=== PATIENT | female | born 1945 | race American Indian/Alaskan Native ===

== ENCOUNTER 2016-08-29 12:17 | Emergency (ER) | payer MEDICARE ==
[2016-08-29 12:54] VITALS: BP 110/60
--- NOTE | 2016-08-29 15:19 | Emergency Department Report ---
ED General Adult HPI - General Chief complaint: Urogenital-Female Stated complaint: INFECTION ON LEFT BREAST Time Seen by Provider: 08/29/16 13:33 Source: patient Mode of arrival: Ambulatory Limitations: No Limitations - History of Present Illness Initial comments: 70-year-old female comes in for concern of left breast bloody discharge. Patient reports that she's been dealing with this since 2013 she believes she had her last mammogram last year which was within normal limits. Patient reports that on her left nipple area it was a little bit of a scab she went to wash it and the scab came off and now she has an open area on her left nipple. Patient reports that she tried cleaning it off with peroxide. She is even tried some Neosporin on it. In the past that has helped but this time is not. Patient denies any purulent discharge no fever no chills. - Related Data Home Medications Medication Instructions Recorded Confirmed Last Taken Carvedilol [Carvedilol] 6.25 PO BID 03/31/14 03/31/14 03/31/14 6.25MG Previous Rx's Medication Instructions Recorded Last Taken Type Acetaminophen/Codeine [Tylenol #3] 1 tab PO Q6H PRN #15 tab 12/28/15 Unknown Rx Ibuprofen [Motrin 800 MG tab] 800 mg PO Q8HR PRN #21 tablet 12/28/15 Unknown Rx Allergies Allergy/AdvReac Type Severity Reaction Status Date / Time No Known Allergies Allergy Verified 12/28/15 02:19 ED Review of Systems ROS: Stated complaint: INFECTION ON LEFT BREAST Other details as noted in HPI Constitutional: no symptoms reported Genitourinary: other (left nipple irritation) ED Past Medical Hx - Past Medical History Hx Hypertension: Yes Hx Heart Attack/AMI: No Hx Congestive Heart Failure: No Hx Diabetes: Yes Hx Deep Vein Thrombosis: No Hx Pulmonary Embolism: No Hx Renal Disease: No Hx Arthritis: No Hx Seizures: No Hx Asthma: No Hx COPD: No - Surgical History Hx Pacemaker: No Hx Cholecystectomy: No Hx Appendectomy: No Additional Surgical History: 3 bypass and valve replacement. - Social History Smoking Status: Never Smoker Substance Use Type: None - Medications Home Medications: Home Medications Medication Instructions Recorded Confirmed Last Taken Type Carvedilol [Carvedilol] 6.25 PO BID 03/31/14 03/31/14 03/31/14 History 6.25MG Acetaminophen/Codeine [Tylenol #3] 1 tab PO Q6H PRN #15 tab 12/28/15 Unknown Rx Ibuprofen [Motrin 800 MG tab] 800 mg PO Q8HR PRN #21 tablet 12/28/15 Unknown Rx ED Physical Exam - General Limitations: No Limitations General appearance: alert, in no apparent distress - Skin Skin exam: Present: warm, dry, other (left nipple appears that the skin has come off. There is no discharge appreciated. No tenderness appreciated) ED Course Vital Signs 08/29/16 12:45 Temperature 97.8 F Pulse Rate 89 Respiratory 18 Rate Blood Pressure 110/60 O2 Sat by Pulse 100 Oximetry ED Medical Decision Making - Medical Decision Making Patient's been evaluated by this provider. Discussed with patient that there does not appear to be any infection of her left breast. The nipple is just has the skin off. Advised patient to use A&D ointment. Advised her to gently wash the breasts pat dry the nipples and then apply a and D ointment at least twice a day. Is important that she follows up with her primary care doctor within a week. For further evaluation. Patient verbalized understanding. Do not see the necessity of placing patient on antibiotic at this time. There is no erythematous is nonerythematous and is non-tender. Critical care attestation.: If time is entered above; I have spent that time in minutes in the direct care of this critically ill patient, excluding procedure time. ED Disposition Clinical Impression: Nipple dermatitis Disposition: DISCHARGED TO HOME OR SELFCARE Is pt being admited?: No Does the pt Need Aspirin: No Condition: Stable Instructions: and Nipple Soreness (ED) Additional Instructions: Please apply A+D Ointment to the nipples twice a day follow-up with her primary care doctor within 5 days. Return if he had any bloody discharge pain in the breast swelling in the breasts.
== END 2016-08-29 15:46 | disposition home or self-care (01) ==
LOC: ED 12:17
DX: L30.8 Other specified dermatitis (principal); I10 Essential (primary) hypertension; E11.9 Type 2 diabetes mellitus without complications
CPT/HCPCS: 82962; 99282

== ENCOUNTER 2018-12-22 17:25 | Inpatient (IN) | payer MEDICARE ==
--- NOTE | 2018-12-22 18:00 | Emergency Department Report ---
Blank Doc - Documentation Documentation: 73 y/o female for sluggish, weakness unsteady gait per patient. Hx/o DM, HTN,
[2018-12-22 18:28] LABS: Basophils # (Auto) 0.1 K/mm3 (0.0-0.1); Basophils % (Auto) 0.7 % (0.0-1.8); Eosinophils # (Auto) 0.2 K/mm3 (0.0-0.4); Eosinophils % (Auto) 1.9 % (0.0-4.3); Hematocrit 41.3 % (30.3-42.9); Hemoglobin 14.3 gm/dl (10.1-14.3); Lymphocytes # (Auto) 2.1 K/mm3 (1.2-5.4); Lymphocytes % (Auto) 21.2 % (13.4-35.0); Mean Corpuscular HGB Conc 35 % (30-34); Mean Corpuscular Volume 93 fl (79-97); Monocytes # (Auto) 0.6 K/mm3 (0.0-0.8); Monocytes % (Auto) 6.2 % (0.0-7.3); Platelet Count 230 K/mm3 (140-440); Red Blood Count 4.44 M/mm3 (3.65-5.03)
[2018-12-22 18:51] LABS: Albumin 4.2 g/dL (3.9-5); Calcium 9.7 mg/dL (8.4-10.2)
[2018-12-22 19:05] LABS: Bacteria,Urine 1+ /HPF (Negative); Bilirubin,Urine NEG (Negative); Blood,Urine SM (Negative); Color,Urine Yellow (Yellow); Hyaline Casts,Urine 7 /LPF; Mucus,Urine FEW /HPF; Protein,Urine <15 mg/dL mg/dL (Negative); Urobilinogen,Urine < 2.0 mg/dL (<2.0)
[2018-12-22] MEDS ORDERED: ANTIVERT PO ONE (22:24)
--- NOTE | 2018-12-22 22:27 | Emergency Department Report ---
HPI - General Chief Complaint: Weakness Time Seen by Provider: 12/22/18 22:11 - HPI HPI: Room 22 The patient is a 73-year-old female presenting with a chief complaint of not feeling well. The patient states one month she's not felt well and has had an u nsteady gait. Patient states the past 2 weeks she has had an intermittent headache. Patient states she feels off balance when she walks. Patient also noticed occasional shortness of breath for 1 month. Patient states she gets fatigued easily. Patient denies history of trauma or fever. Patient denies nausea or vomiting but admits to dizziness. Location: [See above] Duration: One month Quality: Dizziness, weakness Severity: [See above] Modifying factors: [see above] Context: [see above] Mode of transportation: [not driving] ED Past Medical Hx - Past Medical History Previous Medical History?: Yes Hx Hypertension: Yes Hx Diabetes: Yes Hx of Cancer: Yes (breast CA) - Surgical History Past Surgical History?: Yes Hx Open Heart Surgery: Yes Additional Surgical History: CABG three-vessel and valve replacement (2013). Bilateral lumpectomy - Family History Family history: no significant - Social History Smoking Status: Current Every Day Smoker (1/7 per day) - Medications Home Medications: Home Medications Medication Instructions Recorded Confirmed Last Taken Type Carvedilol 6.25 PO BID 03/31/14 03/31/14 03/31/14 History 6.25MG Acetaminophen/Codeine [Tylenol #3] 1 tab PO Q6H PRN #15 tab 12/28/15 Unknown Rx Ibuprofen [Motrin 800 MG tab] 800 mg PO Q8HR PRN #21 tablet 12/28/15 Unknown Rx ED Review of Systems ROS: Stated complaint: SLUGGISH FEELING Other details as noted in HPI Constitutional: weakness Eyes: denies: eye pain ENT: denies: throat pain Respiratory: shortness of breath Cardiovascular: denies: chest pain Gastrointestinal: denies: abdominal pain, nausea, vomiting Genitourinary: denies: dysuria Musculoskeletal: denies: back pain Neurological: headache, other (dizziness) Physical Exam - Physical Exam Vital Signs: Vital Signs 12/22/18 17:55 Temperature 97.9 F Pulse Rate 61 Respiratory 18 Rate Blood Pressure 109/64 O2 Sat by Pulse 99 Oximetry Physical Exam: GENERAL: The patient is well-developed well-nourished female lying on stretcher not appearing to be in acute distress. [] HEENT: Normocephalic. Atraumatic. Extraocular motions are intact. Patient has moist mucous membranes. No nystagmus noted NECK: Supple. Trachea midline CHEST/LUNGS: Clear to auscultation. There is no respiratory distress noted. HEART/CARDIOVASCULAR: Regular. There is no tachycardia. There is no gallop rub or murmur. ABDOMEN: Abdomen is soft, nontender. Patient has normal bowel sounds. There is no abdominal distention. SKIN: There is no rash. There is no edema. There is no diaphoresis. NEURO: The patient is awake, alert, and oriented. The patient is cooperative. The patient has no focal neurologic deficits. The patient has normal speech. Cranial nerves II through XII grossly intact, no drift. No dysmetria noted with [id number] bilaterally MUSCULOSKELETAL: There is no evidence of acute injury. ED Course Vital Signs 12/22/18 17:55 Temperature 97.9 F Pulse Rate 61 Respiratory 18 Rate Blood Pressure 109/64 O2 Sat by Pulse 99 Oximetry - Consultations Consultation #1: 12/23/18 00:21 Dr. Barnett paged ED Medical Decision Making - Lab Data Result diagrams: 12/22/18 18:18 12/22/18 18:18 Laboratory Tests 12/22/18 12/22/18 12/22/18 18:00 18:02 18:18 WBC 10.0 RBC 4.44 Hgb 14.3 Hct 41.3 MCV 93 MCH 32 MCHC 35 H RDW 13.0 L Plt Count 230 Lymph % (Auto) 21.2 M[place]racken % (Auto) 6.2 Eos % (Auto) 1.9 Baso % (Auto) 0.7 Lymph # 2.1 M[place]racken # 0.6 Eos # 0.2 Baso # 0.1 Seg Neutrophils % 70.0 Seg Neutrophils # 7.0 PT INR APTT Sodium Potassium Chloride Carbon Dioxide Anion Gap BUN Creatinine Estimated GFR BUN/Creatinine Ratio Glucose POC Glucose 126 H Calcium Magnesium Total Bilirubin AST ALT Alkaline Phosphatase Total Creatine Kinase 67 CK-MB (CK-2) 1.9 CK-MB (CK-2) Rel Index 2.8 Troponin T < 0.010 Total Protein Albumin Albumin/Globulin Ratio TSH Free T4 Urine Color Urine Turbidity Urine pH Ur Specific [place] Urine Protein Urine Glucose (UA) Urine Ketones Urine Blood Urine Nitrite Urine Bilirubin Urine Urobilinogen Ur Leukocyte Esterase Urine WBC (Auto) Urine RBC (Auto) U Epithel Cells (Auto) Urine Bacteria (Auto) Hyaline Casts Urine Mucus 12/22/18 12/22/18 12/22/18 18:18 22:40 22:40 WBC RBC Hgb Hct MCV MCH MCHC RDW Plt Count Lymph % (Auto) [place]rack[place] % (Auto) Eos % (Auto) Baso % (Auto) Lymph # [place] # Eos # Baso # Seg Neutrophils % Seg Neutrophils # PT 13.1 INR 0.94 APTT 27.1 Sodium 146 H Potassium 4.5 Chloride 104.7 Carbon Dioxide 27 Anion Gap 19 BUN 20 H Creatinine 1.1 Estimated GFR 59 BUN/Creatinine Ratio 18 Glucose 146 H POC Glucose Calcium 9.7 Magnesium 2.00 Total Bilirubin 0.30 AST 14 ALT 11 Alkaline Phosphatase 132 H Total Creatine Kinase CK-MB (CK-2) CK-MB (CK-2) Rel Index Troponin T Total Protein 6.9 Albumin 4.2 Albumin/Globulin Ratio 1.6 TSH Free T4 Urine Color Urine Turbidity Urine pH Ur Specific [place] Urine Protein Urine Glucose (UA) Urine Ketones Urine Blood Urine Nitrite Urine Bilirubin Urine Urobilinogen Ur Leukocyte Esterase Urine WBC (Auto) Urine RBC (Auto) U Epithel Cells (Auto) Urine Bacteria (Auto) Hyaline Casts Urine Mucus 12/22/18 12/22/18 22:40 Unknown WBC RBC Hgb Hct MCV MCH MCHC RDW Plt Count Lymph % (Auto) [place] % (Auto) Eos % (Auto) Baso % (Auto) Lymph # [place] # Eos # Baso # Seg Neutrophils % Seg Neutrophils # PT INR APTT Sodium Potassium Chloride Carbon Dioxide Anion Gap BUN Creatinine Estimated GFR BUN/Creatinine Ratio Glucose POC Glucose Calcium Magnesium Total Bilirubin AST ALT Alkaline Phosphatase Total Creatine Kinase CK-MB (CK-2) CK-MB (CK-2) Rel Index Troponin T Total Protein Albumin Albumin/Globulin Ratio TSH 2.010 Free T4 0.97 Urine Color Yellow Urine Turbidity Slightly-cloudy Urine pH 5.0 Ur Specific [place] 1.012 Urine Protein <15 mg/dl Urine Glucose (UA) Neg Urine Ketones Neg Urine Blood Sm Urine Nitrite Neg Urine Bilirubin Neg Urine Urobilinogen < 2.0 Ur Leukocyte Esterase Tr Urine WBC (Auto) 2.0 Urine RBC (Auto) 3.0 U Epithel Cells (Auto) < 1.0 Urine Bacteria (Auto) 1+ Hyaline Casts 7 Urine Mucus Few - EKG Data -: EKG Interpreted by Me EKG shows normal: sinus rhythm Rate: normal - EKG Data When compared to previous EKG there are: changes noted Interpretation: nonspecific ST-T wave laly (T-wave inversions in leads 1 and aVL) - Radiology Data Radiology results: report reviewed (CT head, chest x-ray), image reviewed (CT head, chest x-ray) interpreted by me: Chest x-ray-no definite focal infiltrates. No pneumothorax [address] [address] Cat Scan Report Signed Patient: EVIE NICOLAS MR#: [id number] : 1945 Acct:[id number] Age/Sex: 73 / F ADM Date: 12/22/18 Loc: ED Attending Dr: Ordering Physician: RYAN BRIGGS MD Date of Service: 12/22/18 Procedure(s): CT head/brain wo con Accession Number(s): [id number] cc: RYAN BRIGGS MD PROCEDURE: CT HEAD/BRAIN WO CON TECHNIQUE: Computerized tomography of the head was performed without contrast material. CT DOSE LENGTH PRODUCT: mGycm HISTORY: intermittent headache, feels off balance COMPARISONS: None . FINDINGS: Skull and scalp: Normal . Paranasal sinuses: Normal . Ventricles and subarachnoid spaces: Normal . 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 Cerebellum and brainstem: No evidence of hemorrhage, acute infarction or mass . Vasculature: Normal . Other: None . ASPECTS: 10 IMPRESSION: No acute intracranial abnormality. This document is electronically signed by Maty Velázquez MD., Dec 22 2018 11:46:11 PM ET Transcribed By: [facility] [place] Dictated By: MATY VELÁZQUEZ Electronically Authenticated By: MATY VELÁZQUEZ Signed Date/Time: 12/22/182347 DD/ 37 TD/TT: 12/22/182337 [address] [address] XRay Report Signed Patient: EVIE NICOLAS MR#: [id number] : 1945 Acct:[id number] Age/Sex: 73 / F ADM Date: 12/23/18 Loc: 2B-ANA B206-[address]: LOVELY BARNETT MD Ordering Physician: RYAN BRIGGS MD Date of Service: 12/23/18 Procedure(s): XR chest 1V ap Accession Number(s): [id number] cc: RYAN BRIGGS MD Fluoro Time In Minutes: PROCEDURE: XR CHEST 1V AP TECHNIQUE: Chest radiograph single view. HISTORY: dyspnea on exertion COMPARISONS: None . FINDINGS: Heart: Heart size is slightly pronounced. Mediastinum/Vessels: Multiple sternal wires are present. There is been surgery in both hilar regions. Lungs/Pleural space: Normal. Bony thorax: No acute osseous abnormality. Life support devices: None. IMPRESSION: Mild cardiomegaly. There is no evidence of an acute consolidation or effusion. No pneumothorax.. This document is electronically signed by Kristin Steven DO., Dec 23 2018 01:05:25 AM ET Transcribed By: [facility] Dictated By: KRISTIN STEVEN MD Electronically Authenticated By: KRISTIN STEVEN MD Signed Date/Time: 12/23/18 0107 DD/ TD/TT: 12/23/1852 - Medical Decision Making Hypothyroidism, symptomatic anemia, ACS, intracranial mass, ICH - Differential Diagnosis ACS, hypothyroidism, symptomatic anemia, GERD, CHF, vertigo Critical care attestation.: If time is entered above; I have spent that time in minutes in the direct care of this critically ill patient, excluding procedure time. ED Disposition Clinical Impression: Weakness, Dehydration, T wave inversion in EKG Disposition: -09 OP ADMIT IP TO THIS HOSP Is pt being admited?: Yes Does the pt Need Aspirin: Yes Condition: Fair Time of Disposition: 00:21 (Dr Barnett paged)
[2018-12-22 22:43] LABS: Creatine Kinase MB 1.9 ng/mL (0.0-4.0)
[2018-12-22 23:07] LABS: INR 0.94 (0.87-1.13); Partial Thromboplastin Time 27.1 Sec. (24.2-36.6)
[2018-12-22 23:22] LABS: Free T4 (Free Thyroxine) 0.97 ng/dL (0.76-1.46)
--- NOTE | 2018-12-22 23:48 | Cat Scan Report ---
PROCEDURE: CT HEAD/BRAIN WO CON TECHNIQUE: Computerized tomography of the head was performed without contrast material. CT DOSE LENGTH PRODUCT: mGycm HISTORY: intermittent headache, feels off balance COMPARISONS: None . FINDINGS: Skull and scalp: Normal . Paranasal sinuses: Normal . Ventricles and subarachnoid spaces: Normal . 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 Cerebellum and brainstem: No evidence of hemorrhage, acute infarction or mass . Vasculature: Normal . Other: None . ASPECTS: 10 IMPRESSION: No acute intracranial abnormality. This document is electronically signed by Shilo Velázquez MD., Dec 22 2018 11:46:11 PM ET
[2018-12-23] MEDS ORDERED: ASPIRIN PO ONE (00:08)
[2018-12-23] MEDS ORDERED: NACL 0.9% 1000 ML 1,000 ML IV ONE (00:23)
[2018-12-23] MEDS: NACL 0.9% 1000 ML 1,000 ML IV SCH ×3 (00:52→12:10)
[2018-12-23] MEDS ORDERED: NACL 0.9% 1000 ML 1,000 ML ONE (00:57)
--- NOTE | 2018-12-23 01:07 | XRay Report ---
PROCEDURE: XR CHEST 1V AP TECHNIQUE: Chest radiograph single view. HISTORY: dyspnea on exertion COMPARISONS: None . FINDINGS: Heart: Heart size is slightly pronounced. Mediastinum/Vessels: Multiple sternal wires are present. There is been surgery in both hilar regions. Lungs/Pleural space: Normal. Bony thorax: No acute osseous abnormality. Life support devices: None. IMPRESSION: Mild cardiomegaly. There is no evidence of an acute consolidation or effusion. No pneumo thorax.. This document is electronically signed by Shell Steven DO., Dec 23 2018 01:05:25 AM ET
[2018-12-23] MEDS ORDERED: HumaLOG SUB-Q SCH (12:00)
[2018-12-23] MEDS ORDERED: TYLENOL #3 PO PRN (12:32)
[2018-12-23] MEDS ORDERED: D50W (25GM) Syringe IV PRN (12:33)
--- NOTE | 2018-12-23 12:37 | History and Physical Report ---
History of Present Illness Date of examination: 12/23/18 Date of admission: 12/23/18 00:29 Chief complaint: Unstable gait, progressive weakness. 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 Patient denies any chest pain. no cough. denies any orthopnea present with her dyspnea. At the emergency department chest x-ray was unremarkable for any acute pulmonary disease cardiomegaly was identified. CT scan the head was negative for any acute events. Troponine and TSH levels were normal. EKG showed T-wave inversion. Admission was therefore requested. Past History Past Medical History: CAD, COPD, diabetes, hyperlipidemia Past Surgical History: CABG Social history: denies: smoking, alcohol abuse, prescription drug abuse Family history: hypertension Medications and Allergies Allergies Allergy/AdvReac Type Severity Reaction Status Date / Time No Known Allergies Allergy Verified 12/28/15 02:19 Home Medications Medication Instructions Recorded Confirmed Last Taken Type Carvedilol 6.25 mg PO BID 03/31/14 12/23/18 03/31/14 History 6.25MG Acetaminophen/Codeine [Tylenol #3] 1 tab PO Q6H PRN #15 tab 12/28/15 12/23/18 Unknown Rx Ibuprofen [Motrin 800 MG tab] 800 mg PO Q8HR PRN #21 tablet 12/28/15 12/23/18 Unknown Rx Active Meds: Active Medications Sodium Chloride (Nacl 0.9% 1000 Ml) 1,000 mls @ 150 mls/hr IV DIRECT CANDELARIA Last Admin: 12/23/18 12:10 Dose: 150 mls/hr Documented by: Insulin Human Lispro (Humalog) 0 unit SUB-Q ACHS CANDELARIA; Protocol Last Admin: 12/23/18 11:55 Dose: 4 unit Documented by: Review of systems Constitutional: Well Nourished and Well developed. Head: NC/ AT Eyes: Denies any visual impairments. No discharge from the eyes Nose: Denies any rhinorrhea or epistaxis Throats: Denies any post nasal drainage. Ears: Denies any hearing deficits Cardiovascular system: Denies any chest pain, has shortness of breath, no orthopnea, paroxysmal nocturnal dyspnea, or palpitation. Respiratory system: Denies any cough, difficulty breathing, wheezing, pleuritic chest pain, has shortness of breath Gastrointestinal system: Denies any abdominal pain, nausea vomiting, hematemesis or melena. Neurological system: Denies any headache, slurred speech, facial droop, later alizing weakness. Has unstable gait Genitalia system: Denies any dysuria, urinary frequency or urgency, urethral discharge Skin: No rashes, hyperpigmented spots. Hematological: Denies any cervical tenderness hemorrhages or petechia. Immunological: Denies any multiple septic spots, Lymphatic: Denies any generalized lymphadenopathy. Endocrine: Denies any polyuria, polydipsia, polyphagia. No heat or cold intolerance. Musculoskeletal system: No joint pain or swelling. Psych: No visual, tactile, auditory or hallucination Exam - Physical Exam Narrative exam: Constitutional: Well-nourished well-developed. In no distress Head: Normocephalic atraumatic Eyes: Pupils are equal round and reactive to light Nose: No enlarged turbinates, no septal deviation. Mouth: Moist mucous membranes. Neck: Supple no thyromegaly. No bruit. No JVD Heart: Regular rate and rhythm, S1-S2 normal. No rubs murmurs or gallop Lungs: Clear to auscultation bilaterally. no rales or rhonchi Abdomen: Soft, nontender. Bowel sound are present. Extremities: No edema, no cyanosis, no clubbing. Neuro: Alert oriented Oriented x3. No focal sensory or motor deficit. Skin: No rashes or hyperpigmented spots Musculoskeletal system: No joint pain or swelling Hematological: No petechia or subcutanous hemorrhages. Immunological: No multiple septic spots on the skin Lymphatic: No generalized lymphadenopathy Psychiatry: Euthymic. Calm. - Constitutional Vitals: Temp Pulse Resp BP Pulse Ox 98.5 F 64 17 121/59 97 12/23/18 08:20 12/23/18 08:07 12/23/18 08:07 12/23/18 08:07 12/23/18 08:07 Results - Labs CBC & Chem 7: 12/22/18 18:18 12/22/18 18:18 Labs: Abnormal lab results 12/22/18 12/22/18 12/22/18 Range/Units 18:02 18:18 18:18 MCHC 35 H (30-34) % RDW 13.0 L (13.2-15.2) % Sodium 146 H (137-145) mmol/L BUN 20 H (7-17) mg/dL Glucose 146 H (65-100) mg/dL POC Glucose 126 H (70-105) Alkaline Phosphatase 132 H (35-129) units/L 12/23/18 12/23/18 Range/Units 07:50 11:35 MCHC (30-34) % RDW (13.2-15.2) % Sodium (137-145) mmol/L BUN (7-17) mg/dL Glucose (65-100) mg/dL POC Glucose 242 H 222 H (70-105) Alkaline Phosphatase (35-129) units/L Assessment and Plan - Unstable gait CT scan was unremarkable for any acute event We'll obtain MRI to rule out any cerebral ischemic process Comments patient on aspirin, statins, PT/OT evaluation and treatment - T2 Diabetes mellitus Comments Consistent carbohydrate diet Comments Sliding-scale insulin Obtain A1c, urine microalbumin, - Shortness of breath Patient has History of systolic heart failure with ejection fraction of 15-20% as of 11/05/2013 Obtain proBNP, Echocardiogram - History of carotid disease status post CABG 3 in 2013 Continue with aspirin, statins, - UTI Urinalysis was remarkable for leukocyte esterase and bacteria Urine culture Comments patient on Cipro - History of COPD Discussion and when necessary bronchodilators - DVT and GI prophylaxis with Lovbenox and Pepcid - ACP pt is full code Time spent 40 min
[2018-12-23 13:42] LABS: Chol/HDL Ratio 4.32 %
[2018-12-23] MEDS: LEVAQUIN PO SCH (15:16)
[2018-12-23] MEDS: COREG PO SCH ×2 (15:17→22:23)
[2018-12-23] MEDS: PEPCID IV SCH (15:18)
[2018-12-23] MEDS: BABY ASPIRIN PO SCH (15:18)
[2018-12-23] MEDS: LOVENOX SUB-Q SCH (15:18)
[2018-12-23] MEDS: HumaLOG SUB-Q SCH ×2 (17:10→22:25)
[2018-12-23 17:32] LABS: Creatinine,Urine 77.4 mg/dL (0.1-20.0); Microalbumin/Creatinine Ratio 29.7 ug/mg
[2018-12-24 05:55] LABS: Alanine Aminotransferase 7 units/L (7-56); Albumin 3.4 g/dL (3.9-5); BUN/Creatinine Ratio 12; Basophils % (Auto) 0.5 % (0.0-1.8); Blood Urea Nitrogen 11 mg/dL (7-17); Calcium 8.7 mg/dL (8.4-10.2); Eosinophils # (Auto) 0.2 K/mm3 (0.0-0.4); Eosinophils % (Auto) 2.6 % (0.0-4.3); Hemoglobin 12.8 gm/dl (10.1-14.3); Hemolysis Index 6; Lymphocytes # (Auto) 1.8 K/mm3 (1.2-5.4); Lymphocytes % (Auto) 28.8 % (13.4-35.0); Mean Corpuscular HGB Conc 34 % (30-34); Mean Corpuscular Volume 94 fl (79-97); Monocytes # (Auto) 0.5 K/mm3 (0.0-0.8); Monocytes % (Auto) 7.7 % (0.0-7.3); Platelet Count 195 K/mm3 (140-440); Red Blood Count 4.07 M/mm3 (3.65-5.03); Red Cell Distribution Width 13.3 % (13.2-15.2)
[2018-12-24] MEDS: HumaLOG SUB-Q SCH ×4 (08:30→22:51)
[2018-12-24] MEDS: PEPCID IV SCH (09:06)
[2018-12-24] MEDS: LEVAQUIN PO SCH (09:06)
[2018-12-24] MEDS: LOVENOX SUB-Q SCH (09:06)
[2018-12-24] MEDS: COREG PO SCH ×2 (09:06→22:51)
[2018-12-24] MEDS: BABY ASPIRIN PO SCH (09:06)
--- NOTE | 2018-12-24 10:01 | Progress Note ---
Assessment and Plan - Unstable gait CT scan was unremarkable for any acute event For MRI to rule out any cerebral ischemic process Cont. on aspirin, statins, PT/OT evaluation and treatment - T2 Diabetes mellitus Comments Consistent carbohydrate diet Comments Sliding-scale insulin Obtain A1c, urine microalbumin, - Dehydration Improved - Shortness of breath Patient has History of systolic heart failure with ejection fraction of 15-20% as of 11/05/2013 proBNP - nl. Echocardiogram - pending - Tobacco use d/o counselling on tobacco cessation was done - History of carotid disease status post CABG 3 in 2013 Continue with aspirin, statins, - UTI Urinalysis was remarkable for leukocyte esterase and bacteria Urine culture Comments patient on Cipro - History of COPD Discussion and when necessary bronchodilators - DVT and GI prophylaxis with Lovbenox and Pepcid - ACP pt is full code Time spent 40 min Subjective Date of service: 12/24/18 Principal diagnosis: unstable gait, Shortness of breath Interval history: still has unstable gait. shortness of breath improved Objective - Exam Narrative Exam: Constitutional: Well-nourished well-developed. In no distress Head: Normocephalic atraumatic Eyes: Pupils are equal round and reactive to light Nose: No enlarged turbinates, no septal deviation. Mouth: Moist mucous membranes. Neck: Supple no thyromegaly. No bruit. No JVD Heart: Regular rate and rhythm, S1-S2 normal. No rubs murmurs or gallop Lungs: Clear to auscultation bilaterally. no rales or rhonchi Abdomen: Soft, nontender. Bowel sound are present. Extremities: No edema, no cyanosis, no clubbing. Neuro: Alert oriented Oriented x3. No focal sensory or motor deficit. still has unstable gait Skin: No rashes or hyperpigmented spots Musculoskeletal system: No joint pain or swelling Hematological: No petechia or subcutanous hemorrhages. Immunological: No multiple septic spots on the skin Lymphatic: No generalized lymphadenopathy Psychiatry: Euthymic. Calm. - Constitutional Vitals: Vital Signs - 12hr 12/23/18 12/23/18 12/24/18 22:00 22:23 03:03 Temperature 98.3 F Pulse Rate 70 70 54 L Pulse Rate [ 70 Apical] Respiratory 18 20 Rate Blood Pressure 140/65 136/53 O2 Sat by Pulse 96 98 Oximetry 12/24/18 12/24/18 07:25 09:06 Temperature 97.7 F Pulse Rate 57 L 57 L Pulse Rate [ Apical] Respiratory 18 Rate Blood Pressure 147/65 147/65 O2 Sat by Pulse 97 Oximetry - Labs CBC & Chem 7: 12/24/18 05:08 12/24/18 05:08 Labs: Abnormal lab results 12/23/18 12/23/18 12/23/18 Range/Units 11:35 13:07 13:07 [place] % (Auto) (0.0-7.3) % Chloride (98-107) mmol/L Glucose (65-100) mg/dL POC Glucose 222 H (70-105) Hemoglobin A1c 12.9 H (4-6) % Total Protein (6.3-8.2) g/dL Albumin (3.9-5) g/dL HDL Cholesterol 31 L (40-59) mg/dL Urine Creatinine (0.1-20.0) mg/dL 12/23/18 12/23/18 12/23/18 Range/Units 16:51 17:10 22:42 [place] % (Auto) (0.0-7.3) % Chloride (98-107) mmol/L Glucose (65-100) mg/dL POC Glucose 149 H 240 H (70-105) Hemoglobin A1c (4-6) % Total Protein (6.3-8.2) g/dL Albumin (3.9-5) g/dL HDL Cholesterol (40-59) mg/dL Urine Creatinine 77.4 H (0.1-20.0) mg/dL 12/24/18 12/24/18 12/24/18 Range/Units 05:08 05:08 07:29 [place] % (Auto) 7.7 H (0.0-7.3) % Chloride 107.3 H (98-107) mmol/L Glucose 207 H (65-100) mg/dL POC Glucose 219 H (70-105) Hemoglobin A1c (4-6) % Total Protein 5.7 L (6.3-8.2) g/dL Albumin 3.4 L (3.9-5) g/dL HDL Cholesterol (40-59) mg/dL Urine Creatinine (0.1-20.0) mg/dL
[2018-12-25 06:02] LABS: Basophils % (Auto) 0.4 % (0.0-1.8); Eosinophils # (Auto) 0.1 K/mm3 (0.0-0.4); Eosinophils % (Auto) 2.1 % (0.0-4.3); Hematocrit 38.4 % (30.3-42.9); Lymphocytes # (Auto) 1.5 K/mm3 (1.2-5.4); Lymphocytes % (Auto) 23.2 % (13.4-35.0); Mean Corpuscular HGB Conc 34 % (30-34); Mean Corpuscular Volume 94 fl (79-97); Monocytes # (Auto) 0.5 K/mm3 (0.0-0.8); Monocytes % (Auto) 7.1 % (0.0-7.3); Platelet Count 185 K/mm3 (140-440); Red Cell Distribution Width 12.7 % (13.2-15.2)
[2018-12-25 06:30] LABS: Alanine Aminotransferase 6 units/L (7-56); Albumin 3.5 g/dL (3.9-5); BUN/Creatinine Ratio 13; Blood Urea Nitrogen 10 mg/dL (7-17); Calcium 8.7 mg/dL (8.4-10.2); Hemolysis Index 8
[2018-12-25] MEDS: HumaLOG SUB-Q SCH ×2 (07:17→12:27)
[2018-12-25] MEDS: PEPCID IV SCH (09:02)
[2018-12-25] MEDS: LOVENOX SUB-Q SCH (09:07)
[2018-12-25] MEDS: COREG PO SCH (09:08)
[2018-12-25] MEDS: LEVAQUIN PO SCH (09:08)
[2018-12-25] MEDS: BABY ASPIRIN PO SCH (09:08)
[2018-12-25 09:09] VITALS: BP 113/62
--- NOTE | 2018-12-25 09:50 | Discharge Summary ---
Providers - Providers Date of Admission: 12/23/18 00:29 Date of discharge: 12/25/18 Attending physician: LOVELY BARNETT 12/23/18 12:35 Consult to Dietitian/Nutrition [CONS] Routine Physician Instructions: Reason For Exam: Reason for Consult: Diet education 12/23/18 13:07 Physical Therapy Evaluation and Treat [CONS] Routine Comment: Reason For Exam: hospital gait Primary care physician: LOVELY BARNETT Hospitalization Reason for admission: shortness of breath, unstable gait. Condition: Fair Pertinent studies: CT scan of the head was unremarkable for any acute events, chest x-ray that showed cardiomegaly Procedures: None Hospital course: The patient is a 73-year-old female with a history of diabetes mellitus, coronary artery disease status post CABG 3 in 2013, combined systolic and diastolic dysfunction with ejection fraction of 15-20% as of 11/05/2013, hyperlipidemia and COPD presenting to the emergency department on account of unstable gaits, feeling of unwell for the past 1 week as well as of shortness of breath. Patient denies any chest pain. no cough. denies any orthopnea present with her dyspnea. At the emergency department chest x-ray was unremarkable for any acute pulmonary disease cardiomegaly was identified. CT scan the head was negative for any acute events. Troponine and TSH levels were normal. EKG showed T-wave inversion. Was commenced on sliding scale for her diabetes mellitus, atenolol, aspirin, and statins. Urinalysis on admission showed evidence of UTI. Patient was therefore commenced on Levaquin after urine culture was ordered. Report of the culture showed no growth. MRI was ordered to rule out any acute cerebrovascular ischemic event. However patient had a cardiac valve replacement of unknown MRI compatibility. Discussed with radiology who advised the patient may have to go back to [place] where the valve replacement was done so as to determine MRI compatible CARDIAC [place] and to have the MRI done there. In interim patient was remains stable. Ambulating on the floor with no more unstable gait. Shortness of breath is improved. Echo was done with ejection fraction of 40-45% with diastolic dysfunction and systolic function with lower limits of normal. 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 MRI will done on outpatient basis at [facility] after determine the compatibility of cardiac valve. Smoking cessation was emphasized and patient expressed understanding Condition on discharge was satisfactory. Disposition: DC-01 TO HOME OR SELFCARE Time spent for discharge: 45 min - Discharge Diagnoses (1) Diastolic heart failure Status: Acute Comment: Acute on chronic diastolic heart failure (2) Dehydration Status: Acute (3) T wave inversion in EKG Status: Acute (4) COPD (chronic obstructive pulmonary disease) Status: Acute Qualifiers: COPD type: COPD with acute exacerbation Qualified Code(s): J44.1 - Chronic obstructive pulmonary disease with (acute) exacerbation Comment: was on Bronchodilator Core Measure Documentation - Palliative Care Palliative Care/ Comfort Measures: Not Applicable - Core Measures Any of the following diagnoses?: heart failure - Heart Failure Discharge Requirements ANA/ARB for LVSD if EF <40%: Yes Beta noel at discharge: Yes Exam - Physical Exam Narrative exam: Constitutional: Well-nourished well-developed. In no distress Head: Normocephalic atraumatic Eyes: Pupils are equal round and reactive to light Nose: No enlarged turbinates, no septal deviation. Mouth: Moist mucous membranes. Neck: Supple no thyromegaly. No bruit. No JVD Heart: Regular rate and rhythm, S1-S2 normal. No rubs murmurs or gallop Lungs: Clear to auscultation bilaterally. no rales or rhonchi Abdomen: Soft, nontender. Bowel sound are present. Extremities: No edema, no cyanosis, no clubbing. Neuro: Alert oriented Oriented x3. No focal sensory or motor deficit. still has unstable gait Skin: No rashes or hyperpigmented spots Musculoskeletal system: No joint pain or swelling Hematological: No petechia or subcutanous hemorrhages. Immunological: No multiple septic spots on the skin Lymphatic: No generalized lymphadenopathy Psychiatry: Euthymic. Calm. - Constitutional Vitals: Temp Pulse Resp BP Pulse Ox 98.2 F 72 18 113/62 98 12/25/18 07:53 12/25/18 09:08 12/25/18 07:53 12/25/18 09:08 12/25/18 07:53 Plan Activity: advance as tolerated Weight Bearing Status: Non-Weight Bearing Diet: diabetic Follow up with: LOVELY BARNETT MD [Primary Care Provider] - 3 Days DINORAH ANDERSON MD [Staff Physician] - 14 Days Prescriptions: Aspirin [Aspirin BABY CHEW TAB] 81 mg PO QDAY #30 tab.chew Carvedilol [Coreg] 6.25 mg PO BID #60 tablet metFORMIN [Glucophage] 500 mg PO BID #60 tablet Lispro Insulin [Humalog] 6 unit SUB-Q AC #300 units Insulin Glargine,Hum.rec.anlog [Lantus] 15 units SQ HS #1 vial
== END 2018-12-25 13:10 | disposition home or self-care (01) | DRG 190 ==
LOC: ED 17:25 → 2B-ACE 12-23 00:29
PROVIDERS: ADMIT Family Medicine; ATTEND Family Medicine
DX: J44.1 Chronic obstructive pulmonary disease with (acute) exacerbation (principal); I50.33 Acute on chronic diastolic (congestive) heart failure; N39.0 Urinary tract infection, site not specified; I11.0 Hypertensive heart disease with heart failure; R26.9 Unspecified abnormalities of gait and mobility; E11.9 Type 2 diabetes mellitus without complications; E86.0 Dehydration; F17.210 Nicotine dependence, cigarettes, uncomplicated; R26.81 Unsteadiness on feet; I25.10 Atherosclerotic heart disease of native coronary artery without angina pectoris; E78.5 Hyperlipidemia, unspecified; J44.9 Chronic obstructive pulmonary disease, unspecified; Z82.49 Family history of ischemic heart disease and other diseases of the circulatory system; Z85.3 Personal history of malignant neoplasm of breast; Z95.1 Presence of aortocoronary bypass graft; Z71.6 Tobacco abuse counseling
CPT/HCPCS: 36415; 70450; 71045; 80053; 80061; 81001; 82043; 82550; 82553; 82962; 83036; 83735; 83880; 84439; 84443; 84484; 85025; 85610; 85730; 87086; 93005; 93010; 93306; 96372; 99406; G0378; J1650; J1815; J7030

== ENCOUNTER 2019-05-12 19:05 | Emergency (ER) | payer MEDICARE ==
--- NOTE | 2019-05-12 19:29 | Event Note ---
ED Screening Note Date of service: 05/12/19 Time: 19:28 ED Screening Note: This is a 73 y.o. F. that presents to the ER with dizziness and change in appetite for several days. PMH of DM, HTN, HLD, CAD, CHF, & COPD This initial assessment/diagnostic orders/clinical plan/treatment(s) is/are hebert bject to change based on patients health status, clinical progression and re- assessment by fellow clinical providers in the ED. Further treatment and workup at subsequent clinical providers discretion. Patient/guardian urged not to elope from the ED as their condition may be serious if not clinically assessed and managed. Initial orders include: Labs POC glucose 242
[2019-05-12 20:06] LABS: Basophils # (Auto) 0.1 K/mm3 (0.0-0.1); Basophils % (Auto) 0.8 % (0.0-1.8); Eosinophils # (Auto) 0.1 K/mm3 (0.0-0.4); Eosinophils % (Auto) 1.4 % (0.0-4.3); Hematocrit 43.3 % (30.3-42.9); Hemoglobin 14.8 gm/dl (10.1-14.3); Lymphocytes # (Auto) 2.3 K/mm3 (1.2-5.4); Lymphocytes % (Auto) 22.5 % (13.4-35.0); Mean Corpuscular HGB Conc 34 % (30-34); Mean Corpuscular Volume 92 fl (79-97); Monocytes # (Auto) 0.7 K/mm3 (0.0-0.8); Platelet Count 199 K/mm3 (140-440); Red Blood Count 4.71 M/mm3 (3.65-5.03); Red Cell Distribution Width 13.1 % (13.2-15.2)
[2019-05-12 20:24] LABS: Albumin 4.2 g/dL (3.9-5); Calcium 9.3 mg/dL (8.4-10.2)
--- NOTE | 2019-05-12 21:08 | Emergency Department Report ---
HPI - General Chief Complaint: Dizziness Time Seen by Provider: 05/12/19 19:28 - HPI HPI: Room 8 The patient is a 73-year-old female presenting with a chief complaint of "I didn't feel good." The patient states she's had intermittent episodes of fatigu e for several years. Patient states her most recent episode occurred yesterday with "decreased energy." Patient denied having pain of any type including chest pain/pressure/tightness. Patient denied ever having shortness of breath, nausea/vomiting or diarrhea. The patient states she still has some fatigue when she awakened this afternoon problem her to come to the emergency department. The patient states that she's been in the emergency department she feels better and is currently asymptomatic. Location: [See above] Duration: [See above] Quality: [See above] Severity: [See above] Timing: [See above] Context: [See above] Modifying factors: [See above] Associated signs and symptoms: [see above] ED Past Medical Hx - Past Medical History Previous Medical History?: Yes Hx Hypertension: Yes Hx Diabetes: Yes - Surgical History Past Surgical History?: Yes Hx Open Heart Surgery: Yes Additional Surgical History: CABG three-vessel and valve replacement (2013). Bilateral lumpectomy - Family History Family history: no significant - Social History Smoking Status: Current Some Day Smoker Substance Use Type: None - Medications Home Medications: Home Medications Medication Instructions Recorded Confirmed Last Taken Type Acetaminophen/Codeine [Tylenol 1 tab PO Q6H PRN tablet 12/25/18 Unknown Rx /Codeine # 3 tab] Aspirin [Aspirin BABY CHEW TAB] 81 mg PO QDAY #30 tab.chew 12/25/18 Unknown Rx Carvedilol [Coreg] 6.25 mg PO BID #60 tablet 12/25/18 Unknown Rx Insulin Glargine,Hum.rec.anlog 15 units SQ HS #1 vial 12/25/18 Unknown Rx [Lantus] Lispro Insulin [HumaLOG] 6 unit SUB-Q AC #300 units 12/25/18 Unknown Rx metFORMIN [Glucophage] 500 mg PO BID #60 tablet 12/25/18 Unknown Rx ED Review of Systems ROS: Stated complaint: DOESNT FEEL WELL Other details as noted in HPI Constitutional: malaise Eyes: denies: eye pain ENT: denies: throat pain Respiratory: denies: shortness of breath Cardiovascular: denies: chest pain Endocrine: no symptoms reported Gastrointestinal: denies: abdominal pain, nausea, vomiting, diarrhea Genitourinary: denies: dysuria Musculoskeletal: denies: back pain Neurological: denies: headache Physical Exam - Physical Exam Vital Signs: Vital Signs 05/12/19 05/12/19 19:23 19:29 Temperature 97.9 F 97.9 F Pulse Rate 50 L 50 L Respiratory 18 18 Rate Blood Pressure 140/54 Blood Pressure 140/54 [Left] O2 Sat by Pulse 99 99 Oximetry Physical Exam: GENERAL: The patient is well-developed well-nourished female sitting in chair not appearing to be in acute distress. [] HEENT: Normocephalic. Atraumatic. Extraocular motions are intact. Patient has moist mucous membranes. NECK: Supple. Trachea midline CHEST/LUNGS: Clear to auscultation. There is no respiratory distress noted. HEART/CARDIOVASCULAR: Regular. There is no tachycardia. There is no gallop rub or murmur. ABDOMEN: Abdomen is soft, nontender. Patient has normal bowel sounds. There is no abdominal distention. SKIN: There is no rash. There is no diaphoresis. NEURO: The patient is awake, alert, and oriented. The patient is cooperative. The patient has no focal neurologic deficits. The patient has normal speech MUSCULOSKELETAL: There is no evidence of acute injury. ED Course Vital Signs 05/12/19 05/12/19 19:23 19:29 Temperature 97.9 F 97.9 F Pulse Rate 50 L 50 L Respiratory 18 18 Rate Blood Pressure 140/54 Blood Pressure 140/54 [Left] O2 Sat by Pulse 99 99 Oximetry - Reevaluation(s) Reevaluation #1: 05/12/19 22:12 The patient remains asymptomatic. Labs discussed with the patient. Patient informed she will be given IV fluids and then discharged home but with strong warnings to return should she develop any symptoms ED Medical Decision Making - Lab Data Result diagrams: 05/12/19 19:42 05/12/19 19:42 Laboratory Tests 05/12/19 05/12/19 05/12/19 19:42 19:42 19:43 WBC 10.3 RBC 4.71 Hgb 14.8 H Hct 43.3 H MCV 92 MCH 31 MCHC 34 RDW 13.1 L Plt Count 199 Lymph % (Auto) 22.5 [place] % (Auto) 7.0 Eos % (Auto) 1.4 Baso % (Auto) 0.8 Lymph # 2.3 [place] # 0.7 Eos # 0.1 Baso # 0.1 Seg Neutrophils % 68.3 Seg Neutrophils # 7.0 Sodium 138 Potassium 4.1 Chloride 101.7 Carbon Dioxide 20 L Anion Gap 20 BUN 23 H Creatinine 1.2 Estimated GFR 53 BUN/Creatinine Ratio 19 Glucose 269 H POC Glucose 242 H Calcium 9.3 Magnesium Total Bilirubin 0.50 AST 13 ALT 8 Alkaline Phosphatase 117 Total Creatine Kinase CK-MB (CK-2) CK-MB (CK-2) Rel Index Troponin T Total Protein 7.1 Albumin 4.2 Albumin/Globulin Ratio 1.4 TSH Free T4 Urine Color Urine Turbidity Urine pH Ur Specific [place] Urine Protein Urine Glucose (UA) Urine Ketones Urine Blood Urine Nitrite Urine Bilirubin Urine Urobilinogen Ur Leukocyte Esterase Urine WBC (Auto) Urine RBC (Auto) U Epithel Cells (Auto) Urine Bacteria (Auto) Urine Mucus 05/12/19 05/12/19 05/12/19 21:14 21:14 Unknown WBC RBC Hgb Hct MCV MCH MCHC RDW Plt Count Lymph % (Auto) [place] % (Auto) Eos % (Auto) Baso % (Auto) Lymph # [place] # Eos # Baso # Seg Neutrophils % Seg Neutrophils # Sodium Potassium Chloride Carbon Dioxide Anion Gap BUN Creatinine Estimated GFR BUN/Creatinine Ratio Glucose POC Glucose Calcium Magnesium 2.00 Total Bilirubin AST ALT Alkaline Phosphatase Total Creatine Kinase 60 CK-MB (CK-2) 1.5 CK-MB (CK-2) Rel Index 2.5 Troponin T < 0.010 Total Protein Albumin Albumin/Globulin Ratio TSH 2.080 Free T4 0.99 Urine Color Yellow Urine Turbidity Slightly-cloudy Urine pH 5.0 Ur Specific [place] 1.021 Urine Protein 30 mg/dl Urine Glucose (UA) 150 Urine Ketones Neg Urine Blood Sm Urine Nitrite Neg Urine Bilirubin Neg Urine Urobilinogen < 2.0 Ur Leukocyte Esterase Tr Urine WBC (Auto) 3.0 Urine RBC (Auto) 4.0 U Epithel Cells (Auto) 3.0 Urine Bacteria (Auto) 2+ Urine Mucus Few - EKG Data -: EKG Interpreted by Me EKG shows normal: sinus rhythm Rate: normal - EKG Data When compared to previous EKG there are: no significant change Interpretation: unchanged when compared t (12/22/2018) - Differential Diagnosis symptomatically anemia, hypothyroidism, hyponatremia, hypokalemia, ACS Critical care attestation.: If time is entered above; I have spent that time in minutes in the direct care of this critically ill patient, excluding procedure time. ED Disposition Clinical Impression: Weakness Disposition: DC-01 TO HOME OR SELFCARE Is pt being admited?: No Does the pt Need Aspirin: No Condition: Stable Instructions: Weakness (ED) Additional Instructions: Return to the emergency department should you develop worsening symptoms, inability to tolerate food or liquids, high fever or any other concerns Referrals: LOVELY BARNETT MD [Staff Physician] - 3-5 Days Time of Disposition: 22:13
[2019-05-12 21:52] LABS: Bacteria,Urine 2+ /HPF (Negative); Bilirubin,Urine NEG (Negative); Blood,Urine SM (Negative); Color,Urine Yellow (Yellow); Mucus,Urine FEW /HPF; Urobilinogen,Urine < 2.0 mg/dL (<2.0)
[2019-05-12 21:55] LABS: Creatine Kinase MB 1.5 ng/mL (0.0-4.0)
[2019-05-12 22:08] LABS: Free T4 (Free Thyroxine) 0.99 ng/dL (0.76-1.46)
[2019-05-12] MEDS ORDERED: SODIUM CHLORIDE 0.9% 1000 ML 1,000 ML IV ONE (22:09)
[2019-05-13 00:54] VITALS: BP 128/74
== END 2019-05-13 00:21 | disposition home or self-care (01) ==
LOC: ED 19:05
DX: R53.1 Weakness (principal); I10 Essential (primary) hypertension; E11.9 Type 2 diabetes mellitus without complications; F17.200 Nicotine dependence, unspecified, uncomplicated; Z98.890 Other specified postprocedural states; Z79.899 Other long term (current) drug therapy
CPT/HCPCS: 36415; 80053; 81001; 82550; 82553; 82962; 83735; 84439; 84443; 84484; 85025; 93005; 93010; 96365; 99284; J7030; 96361; 96374

== ENCOUNTER 2019-07-26 19:14 | Emergency (ER) | payer MEDICARE ==
--- NOTE | 2019-07-26 20:49 | Event Note ---
ED Screening Note Date of service: 07/26/19 Time: 20:43 ED Screening Note: This is a 73 y.o. F. that presents to the ER with visual changes of left eye that started today. Reports left eye have a cloud over it and floaters. Patient is seeing Dr. Walker and applying fluorometholone opth gtts but unsure of diagnosis. States he was close when symptoms started. This initial assessment/diagnostic orders/clinical plan/treatment(s) is/are subject to change based on patients health status, clinical progression and re- assessment by fellow clinical providers in the ED. Further treatment and workup at subsequent clinical providers discretion. Patient/guardian urged not to elope from the ED as their condition may be serious if not clinically assessed and managed. Initial orders include:
[2019-07-27] MEDS ORDERED: TETRACAINE 0.5% OPHTH SOLN 4ML OU ONE (01:05)
--- NOTE | 2019-07-27 01:11 | Emergency Department Report ---
ED Eye Problem HPI - General Chief complaint: Eye Problems Stated complaint: LT EYE IRRITATION Time Seen by Provider: 07/26/19 20:43 Source: patient Mode of arrival: Ambulatory Limitations: No Limitations - History of Present Illness Initial comments: 73-year-old female with reported history of cataracts presents to ED with left eye visual disturbance. Patient states she has previously had cataract surgery bilateral eyes earlier this year. Patient states some time afterward, she experienced an episode in which she could not see anything out of her left eye. Patient describes it as having a white cloud over her condition at the time. She states she went to her traffic supervisor, who prescribed eyedrops. She states after approximately 1 week her vision returned. Today, patient states her experience is different from that. He is able to see, however she describes seeing black dots and squiggly lines in her visual field in the left eye. She denies headache, eye pain, eye redness, sensation of foreign body. She denies having a curtain come down over her visual field. Patient denies currently using any eye drops. MD chief complaint: vision change -: hour(s) (7) Onset Description: sudden Location: left eye If Injury: none Eye Symptoms: blurry vision Severity: moderate Context: other (history of cataracts) Associated Symptoms: none. denies: headache, neck pain, nausea/vomiting, fever Treatments Prior to Arrival: none - Related Data Previous Rx's Medication Instructions Recorded Last Taken Type Acetaminophen/Codeine [Tylenol 1 tab PO Q6H PRN tablet 12/25/18 Unknown Rx /Codeine # 3 tab] Aspirin [Aspirin BABY CHEW TAB] 81 mg PO QDAY #30 tab.chew 12/25/18 Unknown Rx Insulin Glargine,Hum.rec.anlog 15 units SQ HS #1 vial 12/25/18 Unknown Rx [Lantus] Lispro Insulin [HumaLOG] 6 unit SUB-Q AC #300 units 12/25/18 Unknown Rx carvediloL [Coreg] 6.25 mg PO BID #60 tablet 12/25/18 Unknown Rx metFORMIN [Glucophage] 500 mg PO BID #60 tablet 12/25/18 Unknown Rx Allergies Allergy/AdvReac Type Severity Reaction Status Date / Time No Known Allergies Allergy Verified 12/28/15 02:19 ED Review of Systems ROS: Stated complaint: LT EYE IRRITATION Other details as noted in HPI Comment: All other systems reviewed and negative Eyes: vision change. denies: eye pain, eye discharge Gastrointestinal: denies: nausea, vomiting Neurological: denies: headache ED Past Medical Hx - Past Medical History Previous Medical History?: Yes Hx Hypertension: Yes Hx Diabetes: Yes - Surgical History Past Surgical History?: Yes Hx Open Heart Surgery: Yes Additional Surgical History: CABG three-vessel and valve replacement (2013). Bilateral lumpectomy - Social History Smoking Status: Never Smoker Substance Use Type: None - Medications Home Medications: Home Medications Medication Instructions Recorded Confirmed Last Taken Type Acetaminophen/Codeine [Tylenol 1 tab PO Q6H PRN tablet 12/25/18 Unknown Rx /Codeine # 3 tab] Aspirin [Aspirin BABY CHEW TAB] 81 mg PO QDAY #30 tab.chew 12/25/18 Unknown Rx Insulin Glargine,Hum.rec.anlog 15 units SQ HS #1 vial 12/25/18 Unknown Rx [Lantus] Lispro Insulin [HumaLOG] 6 unit SUB-Q AC #300 units 12/25/18 Unknown Rx carvediloL [Coreg] 6.25 mg PO BID #60 tablet 12/25/18 Unknown Rx metFORMIN [Glucophage] 500 mg PO BID #60 tablet 12/25/18 Unknown Rx ED Physical Exam - General Limitations: No Limitations General appearance: alert, in no apparent distress - Head Head exam: Present: atraumatic, normocephalic - Eye Eye exam: Present: normal appearance, PERRL, EOMI, other (normal pressure bila terally w/ [place], 14 in left eye, 15 right eye; vision is grossly intact, able to see number of fingers that I am hold up without difficulty). Absent: conjunctival injection, periorbital swelling, periorbital tenderness - ENT ENT exam: Present: mucous membranes moist - Neck Neck exam: Present: normal inspection, full ROM - Respiratory Respiratory exam: Present: normal lung sounds bilaterally. Absent: respiratory distress - Cardiovascular Cardiovascular Exam: Present: regular rate, normal rhythm - GI/Abdominal GI/Abdominal exam: Absent: distended - Extremities Exam Extremities exam: Present: normal inspection - Neurological Exam Neurological exam: Present: alert, oriented X3, CN II-XII intact. Absent: motor sensory deficit - Psychiatric Psychiatric exam: Present: normal affect, normal mood - Skin Skin exam: Present: warm, dry, intact, normal color ED Course Vital Signs 12/13/19 12/14/19 19:58 02:05 Temperature 97.6 F Pulse Rate 72 48 L Respiratory 12 20 Rate Blood Pressure 148/51 Blood Pressure 137/62 [Right] O2 Sat by Pulse 99 98 Oximetry - Reevaluation(s) Reevaluation #1: 07/27/19 02:00 Visual acuity testing done, however, pt states she is supposed to be wearing glasses, but lost them. ED Medical Decision Making - Medical Decision Making 73-year-old female with history of cataracts and visual disturbance to left eye. Patient has not lost vision in that eye, only reports floaters and squiggly lines in the vision. Vision is grossly intact. Ocular pressure is within normal limits. Patient advised to follow-up with her traffic supervisor. Critical care attestation.: If time is entered above; I have spent that time in minutes in the direct care of this critically ill patient, excluding procedure time. ED Disposition Clinical Impression: Vision disturbance Disposition: DC-01 TO HOME OR SELFCARE Is pt being admited?: No Condition: Stable Instructions: Blurred Vision (ED) Additional Instructions: Please follow up with your traffic supervisor as soon as possible. Referrals: LOVELY BARNETT MD [Primary Care Provider] - 3-5 Days Forms: Work/School Release Form(ED) Time of Disposition: 02:12
[2019-07-27 02:09] VITALS: BP 137/62
== END 2019-07-27 02:27 | disposition home or self-care (01) ==
LOC: ED 19:14
DX: H53.9 Unspecified visual disturbance (principal); I10 Essential (primary) hypertension; E11.9 Type 2 diabetes mellitus without complications; Z98.890 Other specified postprocedural states; Z79.899 Other long term (current) drug therapy
CPT/HCPCS: 99282

== ENCOUNTER 2020-02-04 11:05 | Inpatient (IN) | payer MEDICARE ==
--- NOTE | 2020-02-04 11:30 | Emergency Department Report ---
HPI - General Chief Complaint: Neuro Symptoms/Deficit PUI?: No Time Seen by Provider: 02/04/20 11:23 - HPI HPI: Room 1 The patient is a 74-year-old female present with a chief complaint of right- sided weakness. The patient has had 3 strokes in the past with residual left- sided weakness (most recent CVA occurred 12/04/2019). The patient's daughter states she noticed yesterday morning the patient exhibited weakness in her right leg and right upper extremity. This morning she states the patient was unable to move her right lower extremity at all and was unable to feed herself with her right hand. This prompted the daughter to bring the patient to the emergency department. The patient has not had her Plavix in 2 weeks as it was not refilled ED Past Medical Hx - Past Medical History Hx Hypertension: Yes Hx CVA: Yes (X3 with left-sided weakness. Last CVA 12/04/2019) Hx Congestive Heart Failure: Yes Hx Diabetes: Yes Hx of Cancer: Yes (Breast CA s/p lumpectomy and xrtv 2015) - Surgical History Hx Open Heart Surgery: Yes Additional Surgical History: CABG three-vessel and valve replacement (2013). Bilateral lumpectomy - Family History Family history: no significant - Social History Smoking Status: Current Some Day Smoker Substance Use Type: None (Denies illicit drug use) - Medications Home Medications: Home Medications Medication Instructions Recorded Confirmed Last Taken Type carvediloL [Coreg] 6.25 mg PO BID #60 tablet 12/25/18 09/29/19 Unknown Rx metFORMIN [Glucophage] 500 mg PO BID #60 tablet 12/25/18 09/29/19 Unknown Rx Aspirin EC [Halfprin EC] 81 mg PO QDAY #90 tablet. 10/03/19 Unknown Rx AtorvaSTATin [Lipitor] 40 mg PO QHS #90 tablet 10/03/19 Unknown Rx Clopidogrel [Plavix] 75 mg PO QDAY #30 tablet 10/03/19 Unknown Rx Lispro Insulin [HumaLOG] 0 unit SUB-Q ACHS units 10/03/19 Unknown Rx ED Review of Systems ROS: Stated complaint: POSS STROKE Other details as noted in HPI Constitutional: no symptoms reported Respiratory: no symptoms reported Endocrine: no symptoms reported Neurological: weakness Physical Exam - Physical Exam Physical Exam: GENERAL: The patient is well-developed well-nourished female lying on stretcher not appearing to be in acute distress. [] HEENT: Normocephalic. Atraumatic. Extraocular motions are intact. Patient has moist mucous membranes. NECK: Supple. Trachea midline CHEST/LUNGS: Clear to auscultation. There is no respiratory distress noted. HEART/CARDIOVASCULAR: Regular. There is no tachycardia. There is no gallop rub or murmur. ABDOMEN: Abdomen is soft, nontender. Patient has normal bowel sounds. There is no abdominal distention. SKIN: There is no rash. There is no edema. There is no diaphoresis. NEURO: The patient is awake, alert, and oriented. The patient is cooperative. Cranial nerves II through XII grossly intact. The patient has normal speech. Patient exhibits slightly more difficulty flexing right lower extremity at the hip and knee when compared to the left. Business Office Manager equal bilaterally MUSCULOSKELETAL: There is no evidence of acute injury. ED Course - Consultations Consultation #1: 02/04/20 11:32 Case discussed with dizx-exoixummuvo-ay TPA, no CTAs. Recommends restarting Plavix and inpatient work-up ED Medical Decision Making - Lab Data Result diagrams: 02/04/20 11:35 Laboratory Tests 02/04/20 02/04/20 02/04/20 11:13 11:13 11:35 WBC 8.5 RBC 3.42 L Hgb 11.2 Hct 32.4 MCV 95 MCH 33 H MCHC 35 H RDW 14.2 Plt Count 206 Lymph % (Auto) 21.0 Ward % (Auto) 4.9 Eos % (Auto) 1.9 Baso % (Auto) 0.4 Lymph # 1.8 Ward # 0.4 Eos # 0.2 Baso # 0.0 Seg Neutrophils % 71.8 H Seg Neutrophils # 6.1 PT 13.4 INR 1.04 APTT 28.1 Thrombin Time Sodium 143 Potassium 4.0 Chloride 102.9 Carbon Dioxide 22 Anion Gap 22 BUN 22 H Creatinine 0.9 Estimated GFR > 60 BUN/Creatinine Ratio 24 Glucose 215 H POC Glucose Calcium 9.3 Troponin T < 0.010 02/04/20 02/04/20 11:35 11:43 WBC RBC Hgb Hct MCV MCH MCHC RDW Plt Count Lymph % (Auto) Ward % (Auto) Eos % (Auto) Baso % (Auto) Lymph # Ward # Eos # Baso # Seg Neutrophils % Seg Neutrophils # PT INR APTT Thrombin Time 14.0 L Sodium Potassium Chloride Carbon Dioxide Anion Gap BUN Creatinine Estimated GFR BUN/Creatinine Ratio Glucose POC Glucose 234 H Calcium Troponin T - EKG Data -: EKG Interpreted by Me EKG shows normal: sinus rhythm - EKG Data When compared to previous EKG there are: previous EKG unavailable Interpretation: nonspecific ST-T wave laly - Radiology Data Radiology results: report reviewed (CT head), image reviewed (CT head) Findings [facility] [address] [id number] Cat Scan Report Signed Patient: EVIE NICOLAS MR#: [id number] : 1945 Acct:[id number] Age/Sex: 74 / F ADM Date: 02/04/20 Loc: ED Attending Dr: Ordering Physician: RYAN LANCE MD Date of Service: 02/04/20 Procedure(s): CT head/brain wo con Accession Number(s): [id number] cc: RYAN LANCE MD CT BRAIN: 02/04/2020 INDICATION / CLINICAL INFORMATION: Stroke. COMPARISON: 12/19/2019 FINDINGS: BRAIN/INTRACRANIAL STRUCTURES: Unenhanced CT images of the brain were obtained and compared to prior exam from 12/19/2019. There is been no change. Th ere is no evidence of acute abnormality. Ventricles and sulci are prominent in size, consistent with diffuse cerebral atrophy. Chronic lacunar changes are present in the basal ganglia and left centrum semiovale region, and to a lesser degree in the region of the right thalamus. There is also decreased attenuation which appears to be extending along the left cortical spinal tract through the brainstem, possibly due to Wallerian degeneration associated with the left centrum semiovale chronic ischemic injury. This is not changed when compared to the prior exam. There is also evidence of prior lacunar ischemic change in the right dorsal yasemin, also unchanged. There is no evidence of hemorrhage or mass. There are no abnormal extra-axial fluid collections. EXTRACRANIAL STRUCTURES: Unremarkable. IMPRESSION: No acute abnormality. Chronic ischemic and age-related changes. Findings were discussed with Dr. Lance at [address] scans at this location are performed using dose reduction to ALARA by means of automated exposure control. Signer Name: Benjamin Muller MD Signed: 02/04/2020 11:30 AM Wo rkstation Name: [id number] Transcribed By: AO Dictated By: Benjamin Muller MD Electronically Authenticated By: Benjamin Muller MD Signed Date/Time: 02/04/20 1130 DD/ 1122 TD/TT: - Differential Diagnosis CVA Critical care attestation.: If time is entered above; I have spent that time in minutes in the direct care of this critically ill patient, excluding procedure time. ED Disposition Clinical Impression: CVA (cerebral vascular accident) Disposition: DC-09 OP ADMIT IP TO THIS HOSP Is pt being admited?: Yes Does the pt Need Aspirin: Yes Condition: Fair Time of Disposition: 12:15 (Hospitalist paged)
[2020-02-04] MEDS ORDERED: CLOPIDOGREL 300 MG TAB PO ONE (11:32)
--- NOTE | 2020-02-04 11:34 | Cat Scan Report ---
CT BRAIN: 02/04/2020 INDICATION / CLINICAL INFORMATION: Stroke. COMPARISON: 12/19/2019 FINDINGS: BRAIN/INTRACRANIAL STRUCTURES: Unenhanced CT images of the brain were obtained and compared to prior exam from 12/19/2019. There is been no change. There is no evidence of acute abnormality. Ventricles and sulci are prominent in size, consistent wit h diffuse cerebral atrophy. Chronic lacunar changes are present in the basal ganglia and left centrum semiovale region, and to a lesser degree in the region of the right thalamus. There is also decreased attenuation which appears to be extending along the left cortical spinal tract through the brainstem, possibly due to Wallerian degeneration associated with the left centrum semiovale chronic ischemic injury. This is not changed when compared to the prior exam. There is also evidence of prior lacunar ischemic change in the righ t dorsal yasemin, also unchanged. There is no evidence of hemorrhage or mass. There are no abnormal extra-axial fluid collections. EXTRACRANIAL STRUCTURES: Unremarkable. IMPRESSION: No acute abnormality. Chronic ischemic and age-related changes. Findings were discussed with Dr. Lance at [address] scans at this location are performed using dose reduction to ALARA by means of automated expos ure control. Signer Name: Benjamin Muller MD Signed: 02/04/2020 11:30 AM Workstation Name: [id number]
--- NOTE | 2020-02-04 11:34 | Consultation ---
History of Present Illness History of present illness: [facility] Date of Service: 02/04/2020 11:11:11 Impression: Rule Out Acute Ischemic Stroke Comments/Sign-Out: 74 yo F h/o DM, COPD, HTN, HL, previous stroke w residual leg weakness, diastolic heart failure p/w R leg weakness. Pt is on plavix. Mechanism of Stroke: Not Clear Metrics: Last Known Well: 02/03/2020 09:00:00 [facility] Notification Time: 02/04/2020 11:10:48 Arrival Time: 02/04/2020 11:11:00 Stamp Time: 02/04/2020 11:11:11 Time First Login Attempt: 02/04/2020 11:14:51 Video Start Time: 02/04/2020 11:14:51 Symptoms: R leg weakness NIHSS Start Assessment Time: 02/04/2020 11:20:53 Patient is not a candidate for tPA. Patient was not deemed candidate for tPA thrombolytics because of Last Well Known Above 4.[address] head showed no acute hemorrhage or acute core infarct. Clinical Presentation is not Suggestive of Large Vessel Occlusive Disease Our recommendations are outlined below. Recommendations: Activate Stroke Protocol Admission/Order Set Stroke/Telemetry Floor Neuro Checks Bedside Swallow Eval DVT Prophylaxis IV Fluids, Normal Saline Head of Bed 30 Degrees Euglycemia and Avoid Hyperthermia (PRN Acetaminophen) Antiplatelet Therapy Recommended Sign Out: Discussed with Emergency Department Provider History of Present Illness: Patient is a 74 year old Female. Patient was brought by EMS for symptoms of R leg weakness 74 yo F h/o DM, COPD, HTN, HL, previous stroke w residual leg weakness, diastolic heart failure p/w R leg weakness. Pt was on plavix, ran out of plavix 2 weeks ago. Last seen normal was beyond 4.5 hours of presentation. Examination: BP(151/66), Pulse(75), 1A: Level of Consciousness - Alert; keenly responsive + 0 1B: Ask Month and Age - Both Questions Right + 0 1C: Blink Eyes & Squeeze Hands - Performs Both Tasks + 0 2: Test Horizontal Extraocular Movements - Normal + 0 3: Test Visual Feldman - No Visual Loss + 0 4: Test Facial Palsy (Use Grimace if Obtunded) - Normal symmetry + 0 5A: Test Left Arm Motor Drift - No Drift for 10 Seconds + 0 5B: Test Right Arm Motor Drift - No Drift for 10 Seconds + 0 6A: Test Left Leg Motor Drift - No Drift for 5 Seconds + 0 6B: Test Right Leg Motor Drift - Drift, but doesn't hit bed + 1 7: Test Limb Ataxia (FNF/Heel-Blevins) - No Ataxia + 0 8: Test Sensation - Normal; No sensory loss + 0 9: Test Language/Aphasia - Normal; No aphasia + 0 10: Test Dysarthria - Normal + 0 11: Test Extinction/Inattention - No abnormality + 0 NIHSS Score: 1 Patient/Family was informed the Neurology Consult would happen via TeleHealth consult by way of interactive audio and video telecommunications and consented to receiving care in this manner. Due to the immediate potential for life-threatening deterioration due to underlying acute neurologic illness, I spent 35 minutes providing critical care. This time includes time for face to face visit via telemedicine, review of medical records, imaging studies and discussion of findings with providers, the patient and/or family. Dr Kaitlin Woody [facility] Case [id number] Medications and Allergies Allergies Allergy/AdvReac Type Severity Reaction Status Date / Time No Known Allergies Allergy Verified 09/28/19 02:27 Home Medications Medication Instructions Recorded Confirmed Last Taken Type carvediloL [Coreg] 6.25 mg PO BID #60 tablet 12/25/18 09/29/19 Unknown Rx metFORMIN [Glucophage] 500 mg PO BID #60 tablet 12/25/18 09/29/19 Unknown Rx Aspirin EC [Halfprin EC] 81 mg PO QDAY #90 tablet. 10/03/19 Unknown Rx AtorvaSTATin [Lipitor] 40 mg PO QHS #90 tablet 10/03/19 Unknown Rx Clopidogrel [Plavix] 75 mg PO QDAY #30 tablet 10/03/19 Unknown Rx Lispro Insulin [HumaLOG] 0 unit SUB-Q ACHS units 10/03/19 Unknown Rx
[2020-02-04 11:44] LABS: Basophils % (Auto) 0.4 % (0.0-1.8); Eosinophils # (Auto) 0.2 K/mm3 (0.0-0.4); Eosinophils % (Auto) 1.9 % (0.0-4.3); Hematocrit 32.4 % (30.3-42.9); Hemoglobin 11.2 gm/dl (10.1-14.3); Lymphocytes # (Auto) 1.8 K/mm3 (1.2-5.4); Mean Corpuscular HGB Conc 35 % (30-34); Mean Corpuscular Volume 95 fl (79-97); Monocytes # (Auto) 0.4 K/mm3 (0.0-0.8); Monocytes % (Auto) 4.9 % (0.0-7.3); Platelet Count 206 K/mm3 (140-440); Red Blood Count 3.42 M/mm3 (3.65-5.03); Red Cell Distribution Width 14.2 % (13.2-15.2)
[2020-02-04 12:02] LABS: INR 1.04 (0.87-1.13); Partial Thromboplastin Time 28.1 Sec. (24.2-36.6)
[2020-02-04 12:05] LABS: BUN/Creatinine Ratio 24; Blood Urea Nitrogen 22 mg/dL (7-17); Calcium 9.3 mg/dL (8.4-10.2); Hemolysis Index 22
--- NOTE | 2020-02-04 12:18 | History and Physical Report ---
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 Patient is unable to provide detailed history, but is able to prov jarred partial history. Complete history taken from patient's daughter who is at bedside during exam and interview. As per patient, she has experienced right hand weakness that was present upon awakening from sleep at 0900 hrs. this morning. Patient daughter reports progressive generalized muscular weakness over the past 1 month with progressively worsening symptoms over the same timeframe. Patient has unsteady gait which has resulted in multiple falls and the patient is now nonambulatory, bedbound, and requires 5/6 assistance with activities of daily living. Patient transported to [facility] via private vehicle for further care and evaluation. Patient seen and eval evaluated in the emergency department. Lab and imaging studies reviewed. Patient found to have clinical symptoms consistent with acute CVA. Tele-neurology was consulted. The patient was found to be outside the therapeutic window for TPA. Patient initiated on CVA protocol and placed in observation status and admitted to medical floor. No reports of fever, chills, chest pain, productive cough, skin rash, trauma, known exposure to COVID-19. Advanced care planning conducted in ED. Prior admission on 09/28/2019 reviewed. All medication listed at the time of admission has been reconciled. Past History Past Medical History: diabetes, heart failure, hypertension, stroke, other (See HPI) Past Surgical History: CABG, Other (Bilateral lumpectomy) Social history: , lives with family, smoking. denies: alcohol abuse, prescription drug abuse Family history: diabetes, hypertension Medications and Allergies Allergies Allergy/AdvReac Type Severity Reaction Status Date / Time No Known Allergies Allergy Verified 09/28/19 02:27 Home Medications Medication Instructions Recorded Confirmed Last Taken Type carvediloL [Coreg] 6.25 mg PO BID #60 tablet 12/25/18 09/29/19 Unknown Rx metFORMIN [Glucophage] 500 mg PO BID #60 tablet 12/25/18 09/29/19 Unknown Rx Aspirin EC [Halfprin EC] 81 mg PO QDAY #90 tablet. 10/03/19 Unknown Rx AtorvaSTATin [Lipitor] 40 mg PO QHS #90 tablet 10/03/19 Unknown Rx Clopidogrel [Plavix] 75 mg PO QDAY #30 tablet 10/03/19 Unknown Rx Lispro Insulin [HumaLOG] 0 unit SUB-Q ACHS units 10/03/19 Unknown Rx Review of Systems ROS unobtainable: due to mental status Exam - Constitutional Vitals: Temp Pulse Resp BP Pulse Ox 98.4 F 78 13 151/66 96 02/04/20 11:31 02/04/20 12:01 02/04/20 12:01 02/04/20 12:01 02/04/20 12:01 General appearance: Present: mild distress - EENT Eyes: Present: PERRL ENT: hearing intact, clear oral mucosa - Neck Neck: Present: supple, normal ROM - Respiratory Respiratory effort: normal Respiratory: bilateral: CTA - Cardiovascular Heart Sounds: Present: S1 & S2. Absent: rub, click - Extremities Extremities: pulses symmetrical, No edema Peripheral Pulses: within normal limits - Abdominal General gastrointestinal: Present: soft, non-tender, non-distended, normal bowel sounds Female genitourinary: Present: normal - Integumentary Integumentary: Present: clear, warm, dry - Musculoskeletal Musculoskeletal: generalized weakness - Psychiatric Psychiatric: no appropriate mood/affect, no intact judgment & insight, no memory intact, cooperative - Neurologic Neurologic: CNII-XII intact, no focal deficits, moves all extremities, no gait normal HEART Score - HEART Score Troponin: Troponin T < 0.010 ng/mL (0.00-0.029) 02/04/20 11:13 Results - Labs CBC & Chem 7: 02/04/20 11:35 02/04/20 11:13 Labs: Abnormal lab results 02/04/20 02/04/20 02/04/20 Range/Units 11:13 11:35 11:35 RBC 3.42 L (3.65-5.03) M/mm3 MCH 33 H (28-32) pg MCHC 35 H (30-34) % Seg Neutrophils % 71.8 H (40.0-70.0) % Thrombin Time 14.0 L (15.1-19.6) Sec. BUN 22 H (7-17) mg/dL Glucose 215 H (65-100) mg/dL POC Glucose (70-105) 02/04/20 Range/Units 11:43 RBC (3.65-5.03) M/mm3 MCH (28-32) pg MCHC (30-34) % Seg Neutrophils % (40.0-70.0) % Thrombin Time (15.1-19.6) Sec. BUN (7-17) mg/dL Glucose (65-100) mg/dL POC Glucose 234 H (70-105) Assessment and Plan - Patient Problems (1) CVA (cerebral vascular accident) Current Visit: Yes Status: Acute Qualifiers: Laterality of affected vessel: unspecified Plan to address problem: CVA protocol: CT head, echocardiogram, carotid Doppler, physical therapy, speech therapy, Occupational Therapy, dual antiplatelet therapy, neuro check, (2) Diabetes Current Visit: Yes Status: Acute Plan to address problem: Consistent carbohydrate diet, Accu-Chek, hypoglycemia protocol, sliding scale insulin therapy (3) Diastolic heart failure Current Visit: No Status: Acute Qualifiers: Heart failure chronicity: chronic Qualified Code(s): I50.32 - Chronic diastolic (congestive) heart failure Plan to address problem: Strict I's/O, monitor urine output every shift, daily weight, blood pressure control, afterload reduction, supportive care. Supplemental oxygen. (4) Hypertension Current Visit: No Status: Chronic Qualifiers: Hypertension type: essential hypertension Qualified Code(s): I10 - Essential (primary) hypertension Plan to address problem: Monitor blood pressure every shift, continue medical management (5) Frequent falls Current Visit: No Status: Acute Plan to address problem: Physical therapy consulted, supportive care. (6) Cerebral atherosclerosis Current Visit: Yes Status: Acute Plan to address problem: Supportive care, blood pressure control, pain control. (7) Vascular dementia Current Visit: Yes Status: Acute Qualifiers: Dementia behavioral disturbance: without behavioral disturbance Qualified Code(s): F01.50 - Vascular dementia without behavioral disturbance Plan to address problem: Seizure precaution, fall precautions, supportive care, Ativan as needed for agitation. (8) DVT prophylaxis Current Visit: Yes Status: Acute Plan to address problem: SCD to bilateral lower extremities while in bed, prophylactic heparin. (9) Advance care planning Current Visit: Yes Status: Acute Plan to address problem: Disease education conducted, patient is full code, patient daughter acknowledges understanding and agreement with care plan, +30 minutes.
[2020-02-04] MEDS ORDERED: PROMETHAZINE 25 MG RECT SUPP PR PRN (12:19)
[2020-02-04] MEDS ORDERED: ONDANSETRON 4 MG/2 ML INJ IV PRN (12:19)
[2020-02-04] MEDS ORDERED: ACETAMINOPHEN 325 MG TAB PO PRN (12:19)
[2020-02-04] MEDS ORDERED: MAGNESIUM HYDROXIDE (MOM) ORAL LIQD UDC PO PRN (12:19)
[2020-02-04] MEDS ORDERED: METOCLOPRAMIDE 10 MG TAB PO PRN (12:19)
--- NOTE | 2020-02-04 14:09 | Vascular Lab Report ---
"DUPLEX DOPPLER ULTRASOUND CAROTID, BILATERAL INDICATION: stroke. FINDINGS: RIGHT CAROTID: Mild atherosclerotic plaque Right CCA velocity: 90 cm/sec. Right ICA peak systolic velocity: 95 cm/sec. ICA/CCA PSV Ratio: 1.6. Right Vertebral Artery: Antegrade flow. LEFT CAROTID: Mild atherosclerotic plaque Left CCA velocity: 107 cm/sec. Left ICA peak systolic velocity: 77 cm/sec. ICA/CCA PSV Ratio: 1.1. Left Vertebral Artery: Antegrade flow. IMPRESSION: 1. Right Internal Carotid Artery: Less than 50% diameter stenosis. 2. Left Internal Carotid Artery: Less than 50% diameter stenosis. Velocity criteria are extrapolated from diameter data as defined by the Society of Radiologists in Ul trasound Consensus Conference, Radiology 2003; 229;340-346. Degree of Stenosis (%) || ICA PSV (cm/sec) || Plaque estimate (%) || ICA/CCA PSV Ratio Normal <125 None <2.0 <50 <125 <50 <2.0 50-69 125-230 50 2.0-4.0 70 but less than 100 >230 50 >4.0 Near occlusion High, low, or none visible variable Total occlusion None visible; no lumen N/A Signer Name: Benjamin Bose MD Signed: 02/04/2020 2:04 PM Workstation Name: [email or web address] [id number]"
[2020-02-04] MEDS: carvediloL 6.25 MG TAB PO SCH (22:08)
[2020-02-05 05:44] LABS: Chol/HDL Ratio 2.87 %
[2020-02-05] MEDS: ASPIRIN EC 81 MG TAB PO SCH (09:37)
[2020-02-05] MEDS: CLOPIDOGREL 75 MG TAB PO SCH (09:37)
[2020-02-05] MEDS: carvediloL 6.25 MG TAB PO SCH ×2 (09:37→22:49)
[2020-02-05] MEDS ORDERED: ASPIRIN 325 MG TAB PO SCH (10:00)
--- NOTE | 2020-02-05 13:08 | Magnetic Resonance Report ---
MR brain wo con INDICATION / CLINICAL INFORMATION: 74 years Female; CVA, DEMENTIA, RT HAND WEAKNESS. TECHNIQUE: Multiplanar, multisequence MR images of the brain were obtained. COMPARISON: The study is compared to the previous MRI of 10/02/2019. FINDINGS: BRAIN / INTRACRANIAL CONTENTS: The motion degrades the image quality. However, there is an acute infa rct within the left yasemin measuring 8 mm in greatest AP dimension. There have been interval evolutiona ry changes of the infarcts involving the left malik radiata and right yasemin from the previous MRI wit h developing encephalomalacia. On the FLAIR sequence, there is otherwise continued cerebral white matter disease most consistent wit h microvascular angiopathy at. There are old small lacunar infarcts involving the basal ganglia and t halami. The diffusion imaging reveals no further evidence of acute infarction. There is mild cerebral atrophy with associated mild prominence of the ventricular system. CRANIOCERVICAL JUNCTION: No significant abnormality. VASCULAR FLOW-VOIDS: The vertebral basilar system and distal internal carotid arteries grossly demons trate appropriate signal voids. ORBITS: No significant abnormality of visualized orbits. SINUSES / MASTOIDS: No significant abnormality in the visualized paranasal sinuses or mastoid air pauline ls. ADDITIONAL FINDINGS: None. IMPRESSION: 1. There is an 8 mm acute infarct within the left yasemin. 2. There is continued microvascular angiopathy as described with interval evolutionary changes of the infarcts involving the left malik radiata and right yasemin from 10/02/2019. Signer Name: Mahendra Coker MD Signed: 02/05/2020 1:03 PM Workstation Name: [id number]
--- NOTE | 2020-02-05 13:12 | Magnetic Resonance Report ---
MR MRA/MRV head wo con INDICATION / CLINICAL INFORMATION: 74 years Female; CVA, DEMENTIA, RT HAND WEAKNESS. TECHNIQUE: 3-D time of flight. NASCET type criteria used to evaluate stenoses. COMPARISON: None available. FINDINGS: INTERNAL CAROTID ARTERIES: The motion degrades image quality. However, the irregularity of the distal internal carotid arteries be indicative of underlying atherosclerotic disease with mild segmental na rrowing bilaterally by NASCET criteria. VERTEBROBASILAR SYSTEM: There is no significant focal stenosis involving the vertebral basilar system . CEREBRAL ARTERIES: There is moderate focal narrowing involving the distal M1 segment of the left MCA. There is milder irregularity of the remaining proximal cerebral arteries also indicative of atherosc lerotic disease. ANEURYSM: None identified. IMPRESSION: The motion degrades image quality. However, contrast indicative of diffuse atherosclerotic disease wi th mild segmental narrowing of the distal internal carotid arteries bilaterally as well as moderate f ocal narrowing of the M1 segment of the left MCA. Signer Name: Mahendra Coker MD Signed: 02/05/2020 1:08 PM Workstation Name: [id number]
--- NOTE | 2020-02-05 16:31 | Progress Note ---
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 /Hyperlipidemia, continue statin /Vascular dementia Seizure precaution, fall precautions, supportive care, Ativan as needed for agitation. / DVT prophylaxis SCD to bilateral lower extremities while in bed, prophylactic heparin. (9) Advance care planning Disease education conducted, patient is full code, patient daughter acknowledges understanding and agreement with care plan, +30 minutes. Physical exam: GENERAL: well-developed and well-nourished elderly -[place] female lying on bed appeared to be in no discomfort. HEENT: Normocephalic. Atraumatic. No conjunctival congestion or icterus. Patient has moist mucous membranes. NECK: Supple. Trachea midline. CHEST/LUNGS: Clear to auscultated bilaterally, breathing nonlabored. No wheezes crackles or rhonchi. HEART/CARDIOVASCULAR: Regular in rate and rhythm. S1 and S2 positive. ABDOMEN: Abdomen is soft, nontender. Patient has normal bowel sounds. SKIN: There is no rash. Warm and dry. NEURO: Right-sided weakness. Follows command. MUSCULOSKELETAL: No joint effusion or tenderness. EXTRIMITY: No edema, no cyanosis or clubbing. PSYCH: Cooperative. Subjective Date of service: 02/05/20 Interval history: Patient seen and examined. Medical records and medication list reviewed. No acute event overnight noted by the RN. Patient denies any chest pain or difficulty breathing. Patient is tolerating diet. Complains of right hand and right foot numbness MRI brain suggestive for small left pontine CVA, neuro eval pending Discussed plan of care at bedside with patient. Objective - Constitutional Vitals: Vital Signs - 12hr 02/05/20 02/05/20 02/05/20 04:58 08:37 09:37 Temperature 98.6 F Pulse Rate 64 64 Respiratory 18 Rate Blood Pressure 122/64 122/64 O2 Sat by Pulse 97 97 Oximetry 02/05/20 02/05/20 11:08 11:49 Temperature 98.3 F Pulse Rate 74 Respiratory 20 20 Rate Blood Pressure 114/64 O2 Sat by Pulse 98 97 Oximetry - Labs CBC & Chem 7: 02/04/20 11:35 02/04/20 11:13 Labs: Abnormal lab results 02/04/20 02/05/20 02/05/20 Range/Units 22:41 04:48 07:45 POC Glucose 145 H 126 H (70-105) HDL Cholesterol 32 L (40-59) mg/dL 02/05/20 Range/Units 11:20 POC Glucose 225 H (70-105) HDL Cholesterol (40-59) mg/dL HEART Score - HEART Score Troponin: Troponin T < 0.010 ng/mL (0.00-0.029) 02/04/20 11:13
[2020-02-06] MEDS: ASPIRIN EC 81 MG TAB PO SCH (09:58)
[2020-02-06] MEDS: CLOPIDOGREL 75 MG TAB PO SCH (09:58)
[2020-02-06] MEDS: carvediloL 6.25 MG TAB PO SCH (09:58)
--- NOTE | 2020-02-06 12:26 | Discharge Summary ---
Providers - Providers Date of Admission: 02/05/20 16:28 Date of discharge: 02/06/20 Attending physician: BREANN RODRIGUEZ 02/04/20 12:19 Occupational Therapy Evaluate and Treat [CONS] Routine Comment: Reason For Exam: Neuro deficits Physical Therapy Evaluation and Treat [CONS] Routine Comment: Reason For Exam: Neuro deficits 02/04/20 17:40 Speech Therapy Evaluation and Treat [CONS] Stat Reason For Exam: stroke 02/05/20 09:50 Consult to Physician [CONS] Routine Comment: Consulting Provider: ALESHIA LITTLE Physician Instructions: Reason For Exam: cva Primary care physician: HAND MIXER Hospitalization Condition: Stable Hospital course: This is a 74-year-old female with h/o coronary artery disease, diabetes mellitus type 2, hypertension, hyperlipidemia presented to the hospital with right- sided sided weakness. Patient was admitted to the hospital with acute stroke protocol, tele-neurology was consulted in the ER. Patient was not found to be a candidate for TPA. Patient was placed on dual antiplatelets, statin and allowed for permissive hypertension for [address] head in the ER did not show any acute abnormality. Patient was further evaluated with MRI/MRA of the brain, 2D echo, carotid Doppler. MRI of the brain showed left pontine CVA about 8 mm, 2D echo showed preserved EF, less than 50% stenosis bilaterally on carotid Doppler. PT OT evaluated the patient and recommended acute rehab but patient wanted to go home with home health. Neurology further evaluated the patient and recommended to increase aspirin to 325 mg daily and to increase Lipitor to 80 mg daily and recommended further follow-up outpatient. Patient was then discharge home in stable condition with home health PT OT. Plan of care and management was thoroughly discussed with patient daughter by phone and she verbalized understanding. MRI/MRA brain: 1. There is an 8 mm acute infarct within the left yasemin. 2. There is continued microvascular angiopathy as described with interval evolutionary changes of the infarcts involving the left malik radiata and right yasemin from 10/02/2019. Carotid Doppler: 1. Right Internal Carotid Artery: Less than 50% diameter stenosis. 2. Left Internal Carotid Artery: Less than 50% diameter stenosis. CT head without contrast: No acute abnormality. Chronic ischemic and age-related changes. 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 HEENT: Normocephalic. Atraumatic. No conjunctival congestion or icterus. Patient has moist mucous membranes. NECK: Supple. Trachea midline. CHEST/LUNGS: Clear to auscultated bilaterally, breathing nonlabored. No wheezes crackles or rhonchi. HEART/CARDIOVASCULAR: Regular in rate and rhythm. S1 and S2 positive. ABDOMEN: Abdomen is soft, nontender. Patient has normal bowel sounds. SKIN: There is no rash. Warm and dry. NEURO: Right-sided weakness. Follows command. MUSCULOSKELETAL: No joint effusion or tenderness. EXTRIMITY: No edema, no cyanosis or clubbing. PSYCH: Cooperative. Disposition: [id number]/[place]-06 HOME UNDER [facility] Time spent for discharge: 34 mnutes Core Measure Documentation - Palliative Care Palliative Care/ Comfort Measures: Not Applicable - Core Measures Any of the following diagnoses?: stroke - Stroke Discharge Requirements Statin for LDL = or >70 mg/dl on DC: Yes Anticoag for atrial fib/atrial flutter: Not Applicable Antithrombotic for ischemic stroke: Yes Exam - Constitutional Vitals: Temp Pulse Resp BP Pulse Ox 98.7 F 67 16 114/51 96 02/06/20 00:18 02/06/20 09:58 02/06/20 00:18 02/06/20 00:18 02/06/20 08:30 Plan Activity: fall precautions Diet: low fat, low salt Special Instructions: record daily BP diary Follow up with: NURYS RENE MD [Referring] - 7 Days TEGAN ZAPATA MD [Staff Physician] - 7 Days Prescriptions: AtorvaSTATin [Lipitor] 80 mg PO QHS #30 tab Aspirin 325 mg PO QDAY #30 tablet
--- NOTE | 2020-02-06 17:03 | Consultation ---
History of Present Illness Reason for Consult: right sided weakness Chief complaint: right sided weakness History of present illness: This is the Tele Neurology consultation. 74 YO Female with CAD S/P CABG, DM complicated by Peripheral Neuropathy, HTN, CVA with LHP on DAPT, Diastolic CHF, Nicotine Dependence, Breast Cancer, Vascular Dementia, Cerebral Atherosclerosis, Debility presents to ED 02/04/2020 for evaluation. As per patient, she has experienced right hand weakness that was present upon awakening from sleep at 0900 hrs. this morning. . Patient has unsteady gait which has resulted in multiple falls and the patient was now nonambulatory. Tele-neurology in ED was consulted. The patient was found to be outside the therapeutic window for TPA. Patient initiated on CVA protocol and placed in observation status and admitted to medical floor. No reports of fever, chills, chest pain, productive cough, skin rash, trauma, known exposure to COVID-19. Advanced care planning conducted in ED. Prior admission on 09/28/2019 reviewed. Past History Past Medical History: diabetes, heart failure, hypertension, stroke, other (See HPI) Past Surgical History: CABG, Other (Bilateral lumpectomy) Social history: , lives with family, smoking. denies: alcohol abuse, prescription drug abuse Family history: diabetes, hypertension Medications and Allergies Allergies Allergy/AdvReac Type Severity Reaction Status Date / Time No Known Allergies Allergy Verified 09/28/19 02:27 Home Medications Medication Instructions Recorded Confirmed Last Taken Type carvediloL [Coreg] 6.25 mg PO BID #60 tablet 12/25/18 02/04/20 02/03/20 Rx Clopidogrel [Plavix] 75 mg PO QDAY #30 tablet 10/03/19 02/04/20 01/29/20 Rx Ascorbic Acid [Vitamin C] 500 mg PO 02/04/20 02/03/20 History Cholecalciferol (Vitamin D3) 125 mcg PO 02/04/20 02/03/20 History [Vitamin D3] Furosemide [Lasix TAB] 40 mg PO QDAY 02/04/20 02/04/20 02/03/20 History Lispro Insulin [HumaLOG] 10 unit SQ AC 02/04/20 02/04/20 02/03/20 History metFORMIN [Glucophage] 1,000 mg PO BID 02/04/20 02/04/20 02/03/20 History Aspirin 325 mg PO QDAY #30 tablet 02/06/20 Unknown Rx AtorvaSTATin [Lipitor] 80 mg PO QHS #30 tab 02/06/20 Unknown Rx Active Meds: Active Medications Acetaminophen (Tylenol) 650 mg PO Q4H PRN PRN Reason: Pain, Mild (1-3) Aspirin (Halfprin Ec) 81 mg PO QDAY [facility] Last Admin: 02/06/20 09:58 Dose: 81 mg Documented by: Atorvastatin Calcium (Lipitor) 40 mg PO QHS [facility] Last Admin: 02/05/20 22:49 Dose: 40 mg Documented by: Bisacodyl (Dulcolax) 10 mg [place] QDAY PRN PRN Reason: Constipation Carvedilol (Coreg) 6.25 mg PO BID [facility] Last Admin: 02/06/20 09:58 Dose: 6.25 mg Documented by: Clopidogrel Bisulfate (Plavix) 75 mg PO QDAY [facility] Last Admin: 02/06/20 09:58 Dose: 75 mg Documented by: Magnesium Hydroxide (Milk Of Magnesia) 30 ml PO Q4H PRN PRN Reason: Constipation Metoclopramide HCl (Reglan) 10 mg PO Q6H PRN PRN Reason: Nausea And Vomiting Ondansetron HCl (Zofran) 4 mg IV Q8H PRN PRN Reason: Nausea And Vomiting Promethazine HCl (Phenergan) 25 mg [place] Q6H PRN PRN Reason: Nausea And Vomiting Sodium Chloride (Sodium Chloride Flush Syringe 10 Ml) 10 ml IV PRN PRN PRN Reason: LINE FLUSH Review of Systems All systems: negative (right sided weakness) Physical Examination - Vital Signs Vital Signs: Vital Signs Pulse Ox 95 02/04/20 11:21 - Physical Exam Narrative exam: Neurology examination: alert awake. talking. follows simple commands. cn- eomi- facial asymmetry difficult to assess. m- right arm drift present. Laboratory Results - last 72 hr 02/04/20 02/04/20 02/04/20 11:13 11:13 11:35 WBC 8.5 RBC 3.42 L Hgb 11.2 Hct 32.4 MCV 95 MCH 33 H MCHC 35 H RDW 14.2 Plt Count 206 Lymph % (Auto) 21.0 [place] % (Auto) 4.9 Eos % (Auto) 1.9 Baso % (Auto) 0.4 Lymph # 1.8 [place] # 0.4 Eos # 0.2 Baso # 0.0 Seg Neutrophils % 71.8 H Seg Neutrophils # 6.1 PT 13.4 INR 1.04 APTT 28.1 Thrombin Time Sodium 143 Potassium 4.0 Chloride 102.9 Carbon Dioxide 22 Anion Gap 22 BUN 22 H Creatinine 0.9 Estimated GFR > 60 BUN/Creatinine Ratio 24 Glucose 215 H POC Glucose Calcium 9.3 Troponin T < 0.010 Triglycerides Cholesterol LDL Cholesterol Direct HDL Cholesterol Cholesterol/HDL Ratio Nasal Screen MRSA (PCR) 02/04/20 02/04/20 02/04/20 11:35 11:43 22:41 WBC RBC Hgb Hct MCV MCH MCHC RDW Plt Count Lymph % (Auto) [place] % (Auto) Eos % (Auto) Baso % (Auto) Lymph # [place] # Eos # Baso # Seg Neutrophils % Seg Neutrophils # PT INR APTT Thrombin Time 14.0 L Sodium Potassium Chloride Carbon Dioxide Anion Gap BUN Creatinine Estimated GFR BUN/Creatinine Ratio Glucose POC Glucose 234 H 145 H Calcium Troponin T Triglycerides Cholesterol LDL Cholesterol Direct HDL Cholesterol Cholesterol/HDL Ratio Nasal Screen MRSA (PCR) 02/04/20 02/05/20 02/05/20 Unknown 04:48 07:45 WBC RBC Hgb Hct MCV MCH MCHC RDW Plt Count Lymph % (Auto) [place] % (Auto) Eos % (Auto) Baso % (Auto) Lymph # [place] # Eos # Baso # Seg Neutrophils % Seg Neutrophils # PT INR APTT Thrombin Time Sodium Potassium Chloride Carbon Dioxide Anion Gap BUN Creatinine Estimated GFR BUN/Creatinine Ratio Glucose POC Glucose 126 H Calcium Troponin T Triglycerides 74 Cholesterol 92 LDL Cholesterol Direct 56 HDL Cholesterol 32 L Cholesterol/HDL Ratio 2.87 Nasal Screen MRSA (PCR) Negative 02/05/20 02/05/20 02/05/20 11:20 17:05 23:02 WBC RBC Hgb Hct MCV MCH MCHC RDW Plt Count Lymph % (Auto) [place] % (Auto) Eos % (Auto) Baso % (Auto) Lymph # [place] # Eos # Baso # Seg Neutrophils % Seg Neutrophils # PT INR APTT Thrombin Time Sodium Potassium Chloride Carbon Dioxide Anion Gap BUN Creatinine Estimated GFR BUN/Creatinine Ratio Glucose POC Glucose 225 H 239 H 164 H Calcium Troponin T Triglycerides Cholesterol LDL Cholesterol Direct HDL Cholesterol Cholesterol/HDL Ratio Nasal Screen MRSA (PCR) 02/06/20 02/06/20 07:24 12:18 WBC RBC Hgb Hct MCV MCH MCHC RDW Plt Count Lymph % (Auto) [place] % (Auto) Eos % (Auto) Baso % (Auto) Lymph # [place] # Eos # Baso # Seg Neutrophils % Seg Neutrophils # PT INR APTT Thrombin Time Sodium Potassium Chloride Carbon Dioxide Anion Gap BUN Creatinine Estimated GFR BUN/Creatinine Ratio Glucose POC Glucose 157 H 297 H Calcium Troponin T Triglycerides Cholesterol LDL Cholesterol Direct HDL Cholesterol Cholesterol/HDL Ratio Nasal Screen MRSA (PCR) Results - Laboratory Findings CBC and BMP: 02/04/20 11:35 02/04/20 11:13 Abnormal Lab Findings: Abnormal Labs 02/04/20 02/04/20 02/04/20 11:13 11:35 11:35 RBC 3.42 L MCH 33 H MCHC 35 H Seg Neutrophils % 71.8 H Thrombin Time 14.0 L BUN 22 H Glucose 215 H POC Glucose HDL Cholesterol 02/04/20 02/04/20 02/05/20 11:43 22:41 04:48 RBC MCH MCHC Seg Neutrophils % Thrombin Time BUN Glucose POC Glucose 234 H 145 H HDL Cholesterol 32 L 02/05/20 02/05/20 02/05/20 07:45 11:20 17:05 RBC MCH MCHC Seg Neutrophils % Thrombin Time BUN Glucose POC Glucose 126 H 225 H 239 H HDL Cholesterol 02/05/20 02/06/20 02/06/20 23:02 07:24 12:18 RBC MCH MCHC Seg Neutrophils % Thrombin Time BUN Glucose POC Glucose 164 H 157 H 297 H HDL Cholesterol Assessment and Plan 1- left yasemin acute stroke, seen by mri brain. mra head- intracranial atherosclerosis. left m1 stenosis, but asymptomatic. c.doppler- nl. echo- pending - increase asa 325 mg q day and increase Lipitor 80 mg q hs and continue plavix 75 mg q day. rehab or home health care. no further neurological intervention at this time. thank you.
[2020-02-07 08:13] VITALS: BP 136/65
== END 2020-02-06 17:00 | disposition home health service (06) | DRG 65 ==
LOC: ED 11:05 → 3A 12:19 → OBSVTOIN 02-05 16:28
PROVIDERS: ADMIT Internal Medicine; ATTEND Internal Medicine
DX: I63.9 Cerebral infarction, unspecified (principal); I50.32 Chronic diastolic (congestive) heart failure; G81.94 Hemiplegia, unspecified affecting left nondominant side; I25.10 Atherosclerotic heart disease of native coronary artery without angina pectoris; F17.200 Nicotine dependence, unspecified, uncomplicated; E11.42 Type 2 diabetes mellitus with diabetic polyneuropathy; I11.0 Hypertensive heart disease with heart failure; E78.5 Hyperlipidemia, unspecified; F01.50 Vascular dementia, unspecified severity, without behavioral disturbance, psychotic disturbance, mood disturbance, and anxiety; I67.2 Cerebral atherosclerosis; Z95.1 Presence of aortocoronary bypass graft; Z85.3 Personal history of malignant neoplasm of breast; Z82.49 Family history of ischemic heart disease and other diseases of the circulatory system; Z83.3 Family history of diabetes mellitus; Z79.82 Long term (current) use of aspirin; Z79.899 Other long term (current) drug therapy; Z74.01 Bed confinement status
CPT/HCPCS: 36415; 70450; 70544; 70551; 80048; 80061; 82962; 84484; 85025; 85610; 85670; 85730; 93005; 93306; 93880; 99406; G0378; A9270-GY